=== PATIENT | male | born 1945 | race Caucasian/White ===

== ENCOUNTER 2020-11-29 17:00 | Inpatient (IN) | payer MEDICARE ==
[~2020-11-29] VITALS: Ht 177.8 cm; Wt 99.6 kg
[~2020-11-29 17:00] MED LIST: ACET325T9 PO; ALLO100T PO; APIX5TAB PO; ASCO500C PO; ASPI-630 PO; ATOR20TA PO; ATOR20TA58 PO; CEPH-264 PO; FAMO20TA5 PO; FERR-36 PO; FERR325T72 PO; FURO20TA3 PO; LACT1CAP19 PO; LIDO700A21 TD; METO-239 PO; NYST60PO TP; POTA-163 PO; SERT-267 PO; SEVE800T9 PO; TAMS0.4C97 PO; VITS42.55 TP
[2020-11-29 18:35] LABS: CALCIUM 9.5 mg/dL (8.5-10.1); CREATININE 8.1 mg/dL (0.7-1.3); GFR 6.6
[2020-11-29 18:40] LABS: ALBUMIN 4.3 g/dL (3.4-5.0); MAGNESIUM 1.5 mg/dL (1.8-2.4); TOTAL BILIRUBIN 0.5 mg/dL (0.2-1.0); TOTAL PROTEIN 8.4 g/dL (6.4-8.2)
--- NOTE | 2020-11-29 19:03 | PHYS DOC ---
Past Medical History Past Medical History: A-Fib, Diabetes-Type II, GI Bleed, Hypotension, Pneumonia, Renal Disease Additional Past Medical Histor: blood thinners Past Surgical History: Other Additional Past Surgical Histo: colectomy, fistula placement Smoking Status: Never Smoker Alcohol Use: None General Adult EDM: Chief Complaint: ABDOMINAL PAIN HPI: HPI: Patient is a 75 year old male with history of A. fib, diabetes type 2, end- stage kidney disease on dialysis Thursday last dialyzed yesterday who presents to the ED today complaining of 6 out of 10 pain around his ileostomy, symptoms began 2 to 3 days ago. Patient describes the pain as sharp and constant. Patient states he feels the ileostomy is not working, he states no stool has come out of it for two days currently bloody drainage. Patient is also complaining of nausea with no vomiting. Denies any fever. Review of Systems: Review of Systems: Constitutional: Denies fever or chills. [] Eyes: Denies change in visual acuity. [] HENT: Denies nasal congestion or sore throat. [] Respiratory: Denies cough or shortness of breath. [] Cardiovascular: Denies chest pain or edema. [] GI: Reports abd pain has an ileostomy denies vomiting, bloody stools or diarrhea. [] : Denies dysuria. [] Musculoskeletal: Denies back pain or joint pain. [] Integument: Denies rash. [] Neurologic: Denies headache, focal weakness or sensory changes. Psychiatric: Denies depression or anxiety. [] Heart Score: C/O Chest Pain: N/A Risk Factors: Risk Factors: DM, Current or recent (<one month) smoker, HTN, HLP, family history of CAD, obesity. Risk Scores: Score 0 - 3: 2.5% MACE over next 6 weeks - Discharge Home Score 4 - 6: 20.3% MACE over next 6 weeks - Admit for Clinical Observation Score 7 - 10: 72.7% MACE over next 6 weeks - Early Invasive Strategies Allergies: Allergies: Allergies Coded Allergies Type Severity Reaction Last Updated Verified No Known Drug Allergies 11/29/20 No Physical Exam: PE: Constitutional: Well developed, well nourished, no acute distress, non-toxic appearance. [] HEENT Very hard on hearing, is doing most of the speaking Eyes: PERRLA, EOMI, conjunctiva normal, no discharge. [] Neck: Normal range of motion, no tenderness, supple, no stridor. [] Cardiovascular:Heart rate regular rhythm, left upper extremity with a dialysis fistula, positive bruit and thrill Lungs & Thorax: Bilateral breath sounds clear to auscultation [] Abdomen: Right abdomen with an ileostomy, bloody drainage, soft, no tenderness, no masses, no pulsatile masses. [] Skin: Warm, dry, no erythema, no rash. [] Back: No tenderness, no CVA tenderness. [] Extremities: No tenderness, no cyanosis, no clubbing, ROM intact, no edema. [] Neurologic: Alert and oriented X 3, normal motor function, normal sensory funct ion, no focal deficits noted. [] Psychologic: Affect normal, judgement normal, mood normal. [] Current Patient Data: Labs: Laboratory Tests Test 11/29/20 18:03 11/29/20 18:17 Glucose (Fingerstick) 157 mg/dL (70-99) H Sodium Level 132 mmol/L (136-145) L Potassium Level 5.0 mmol/L (3.5-5.1) Chloride Level 90 mmol/L (98-107) L Carbon Dioxide Level 26 mmol/L (21-32) Anion Gap 16 (6-14) H Blood Urea Nitrogen 58 mg/dL (8-26) H Creatinine 8.1 mg/dL (0.7-1.3) H Estimated GFR (Cockcroft-Gault) 6.6 BUN/Creatinine Ratio 7 (6-20) Glucose Level 148 mg/dL (70-99) H Calcium Level 9.5 mg/dL (8.5-10.1) Magnesium Level 1.5 mg/dL (1.8-2.4) L Total Bilirubin 0.5 mg/dL (0.2-1.0) Aspartate Amino Transferase (AST) 21 U/L (15-37) Alanine Aminotransferase (ALT) 28 U/L (16-63) Alkaline Phosphatase 84 U/L (46-116) Total Protein 8.4 g/dL (6.4-8.2) H Albumin 4.3 g/dL (3.4-5.0) Albumin/Globulin Ratio 1.0 (1.0-1.7) Lipase 260 U/L (73-393) Laboratory Tests 11/29/20 18:17 Vital Signs: Vital Signs Date Time Temp Pulse Resp B/P (MAP) Pulse Ox O2 Delivery O2 Flow Rate FiO2 11/29/20 18:21 98.8 86 15 131/66 (87) 100 Room Air 98.8 EKG: EKG: [] Radiology/Procedures: Radiology/Procedures: []PROCEDURE: CT ABDOMEN PELVIS WO CONTRAST Exam: CT of abdomen and pelvis without contrast INDICATION: Stoma not working TECHNIQUE: Sequential axial images through the abdomen and pelvis obtained without IV contrast. Sagittal and coronal reformatted images were reconstructed from the axial data and reviewed. Exposure: One or more of the following in the visualized dose reduction techniques were utilized for this examination: 1. Automated exposure control 2. Adjustment of the MA and/or KV according to patient size 3. Use of iterative of reconstructive technique Comparisons: None FINDINGS: Heart size is normal. No pericardial effusion. Visualized lung bases are clear. No pleural effusion. Evaluation of solid organs limited to a to noncontrast technique. Liver, spleen, pancreas, and adrenals are unremarkable. Gallbladder surgically absent. No perinephric inflammation or hydronephrosis. There is cystic lesion at the mid left kidney which measures approximately 2.9 cm in diameter. This measures simple fluid attenuation however is incompletely characterized on noncontrast exam. No renal or ureteral calculi are identified. Bladder is decompressed not well evaluated. Prostate is not enlarged. Postoperative changes of near complete colectomy with a small rectal pouch. There is a right lower quadrant ileostomy. There is a parastomal hernia which contains a short segment of small bowel which is causing obstruction. The small bowel proximally is dilated. No free intra-abdominal air or fluid. No obs truction. Additionally there is a left periumbilical fat-containing hernia. Abdominal aorta has a normal course and caliber. No enlarged intra-abdominal lymph nodes are identified. No suspicious osseous lesions or acute fractures. IMPRESSION: 1. Right lower quadrant parastomal hernia containing short segment of small bowel which causes small bowel obstruction. 2. Postoperative changes of near total colectomy with a small rectal pouch. 3. Small fat-containing left periumbilical hernia. Electronically signed by: Tej Magana MD (11/29/2020 7:24 PM) [facility] DICTATED and SIGNED BY: TEJ MAGANA MD DATE: 11/29/20 [id number] 0 Course & Med Decision Making: Course & Med Decision Making Pertinent Labs and Imaging studies reviewed. (See chart for details) This is a 75-year-old male patient with an ileostomy presenting today complaining of abdominal pain, no stool for 2 days and bloody tinged drainage from the ileostomy. CBC CMP with nothing really acute, CMP consistent with end-stage kidney disease. CT of the abdomen and pelvic without contrast was noted for right lower quadrant parastomal hernia containing short segment of small bowel which causes small bowel obstruction. Spoke with Dr. Murphy who accepted patient for admission Spoke with Dr. Thomas who will follow up with patient, requested NG which was ordered Routine consult placed for pattern scratcher Anahi Disclaimer: Anahi Disclaimer: This electronic medical record was generated, in whole or in part, using a voice recognition dictation system. Departure Departure Impression: Primary Impression: ESRD (end stage renal disease) Additional Impression: Small bowel obstruction Disposition: ADMITTED INPATIENT Condition: STABLE Referrals: ZOEY MAHONEY (PCP) GARCIA PENN CAMPAIGN MANAGER Nov 29, 2020 19:03
[2020-11-29 19:11] LABS: BASO % 0 % (0-3); EOS % 1 % (0-3); HEMATOCRIT 40.5 % (39.0-53.0); LYMPH # 0.3 x10^3/uL (1.0-4.8); LYMPH % 4 % (24-48); MEAN CORPUSCULAR HEMOGLOBIN 40 pg (25-35); MEAN CORPUSCULAR HGB CONC 35 g/dL (31-37); MEAN CORPUSCULAR VOLUME 115 fL (79-100); MONO # 0.8 x10^3/uL (0.0-1.1); MONO % 11 % (0-9); NEUT # 5.8 x10^3/uL (1.8-7.7); NEUT % 84 % (31-73); PLATELET COUNT 183 x10^3/uL (140-400); RED BLOOD COUNT 3.52 x10^6/uL (4.30-5.70); RED CELL DISTRIBUTION WIDTH 13.4 % (11.5-14.5); WHITE BLOOD COUNT 6.9 x10^3/uL (4.0-11.0)
--- NOTE | 2020-11-29 19:26 | RAD ---
Exam: CT of abdomen and pelvis without contrast INDICATION: Stoma not working TECHNIQUE: Sequential axial images through the abdomen and pelvis obtained without IV contrast. Sagit meily and coronal reformatted images were reconstructed from the axial data and reviewed. Exposure: One or more of the following in the visualized dose reduction techniques were utilized for this examination: 1. Automated exposure control 2. Adjustment of the MA and/or KV according to patient size 3. Use of iterative of reconstructive technique Comparisons: None FINDINGS: Heart size is normal. No pericardial effusion. Visualized lung bases are clear. No pleural effusion. Evaluation of solid organs limited to a to noncontrast technique. Liver, spleen, pancreas, and adrenals are unremarkable. Gallbladder surgically absent. No perinephric inflammation or hydronephrosis. There is cystic lesion at the mid left kidney which me asures approximately 2.9 cm in diameter. This measures simple fluid attenuation however is incomplete ly characterized on noncontrast exam. No renal or ureteral calculi are identified. Bladder is decompressed not well evaluated. Prostate is not enlarged. Postoperative changes of near complete colectomy with a small rectal pouch. There is a right lower qu adrant ileostomy. There is a parastomal hernia which contains a short segment of small bowel which is causing obstruction. The small bowel proximally is dilated. No free intra-abdominal air or fluid. No obstruction. Additionally there is a left periumbilical fat-containing hernia. Abdominal aorta has a normal course and caliber. No enlarged intra-abdominal lymph nodes are identified. No suspicious osseous lesions or acute fractures. IMPRESSION: 1. Right lower quadrant parastomal hernia containing short segment of small bowel which causes small bowel obstruction. 2. Postoperative changes of near total colectomy with a small rectal pouch. 3. Small fat-containing left periumbilical hernia. Electronically signed by: Tej Chance MD (11/29/2020 7:24 PM) [facility]
[2020-11-29 19:47] LABS: % BANDS 13 % (0-9); % LYMPHS 5 % (24-48); % MONOS 10 % (0-10); % SEGS 72 % (35-66); PLT ESTIMATE ADEQUATE (ADEQUATE); POLYCHROMASIA SLIGHT
[2020-11-29] MEDS ORDERED: MORPHINE SULFATE 4 MG/ML INJ. IVP PRN (21:30)
[2020-11-29] MEDS ORDERED: METOCLOPRAMIDE HCL 10 MG/2 ML VIAL. IVP PRN (21:30)
[2020-11-29] MEDS ORDERED: ONDANSETRON PF 4 MG/2 ML VIAL. IVP PRN (21:30)
[2020-11-30] MEDS ORDERED: BENZOCAINE ONE 20% MUCOSAL SPRAY. (00:12)
[2020-11-30 02:00] VITALS: BP 113/67
[2020-11-30] MEDS ORDERED: MIDO2.5T PO (02:00)
[2020-11-30] MEDS ORDERED: PANT40TA77 PO (02:00)
[2020-11-30] MEDS ORDERED: CALC667T4 PO (02:02)
[2020-11-30 07:15] VITALS: BP 108/57
[2020-11-30 07:44] LABS: BASO % 1 % (0-3); EOS % 1 % (0-3); HEMATOCRIT 40.1 % (39.0-53.0); HEMOGLOBIN 13.8 g/dL (13.0-17.5); LYMPH # 0.2 x10^3/uL (1.0-4.8); LYMPH % 5 % (24-48); MEAN CORPUSCULAR HEMOGLOBIN 40 pg (25-35); MEAN CORPUSCULAR HGB CONC 34 g/dL (31-37); MEAN CORPUSCULAR VOLUME 116 fL (79-100); MONO # 0.8 x10^3/uL (0.0-1.1); MONO % 16 % (0-9); NEUT # 3.9 x10^3/uL (1.8-7.7); NEUT % 79 % (31-73); PLATELET COUNT 201 x10^3/uL (140-400); RED BLOOD COUNT 3.47 x10^6/uL (4.30-5.70); RED CELL DISTRIBUTION WIDTH 13.7 % (11.5-14.5)
[2020-11-30 07:51] LABS: CALCIUM 9.8 mg/dL (8.5-10.1); CREATININE 9.7 mg/dL (0.7-1.3); GFR 5.3
[2020-11-30 07:54] LABS: POTASSIUM 5.9 mmol/L (3.5-5.1)
--- NOTE | 2020-11-30 08:18 | PDOC1 ---
History and Physical Date of Admission Date of Admission DATE: 11/30/20 TIME: 08:18 Source Source: Chart review, Patient History of Present Illness History of Present Illness Patient is a 75 year old male with history of A. fib, diabetes type 2, end- stage kidney disease on dialysis Thursday last dialyzed yesterday who presents to the ED today complaining of 6 out of 10 pain around his ileostomy, symptoms began 2 to 3 days ago. Patient describes the pain as sharp and constant. Patient states he feels the ileostomy is not working, he states no stool has come out of it for two days currently bloody drainage. Patient is also complaining of nausea with no vomiting. Denies any fever. 73 y/o male who we have seen in the past. On this occasion, evaluated in ER for weakness, hypotension per EMS, and dark ostomy output. Symptoms began a couple days ago - describes ostomy output as a little more liquidy than normal, black that turns more red when bag dumped in toilet. Typically empties bag 4 times daily - this is unchanged. Possibly had similar symptoms in the past but resolved quickly. Noted w/ Hgb below baseline and +Hemoccult. Vitals stable here. Plans for transfusion during dialysis later today. Vitals stable. Denies reflux/heartburn, dysphagia, n/v, abd pain, constipation, or change in appetite. No previous EGD. Per past review of [facility] records, normal colonoscopy prior to colectomy w/ ileostomy [place] [address] Ayala for megacolon and colonic inertia. S/p cholecystectomy for stones. We saw earlier this year for ascites - liver workup unrevealing (imaging, paracentesis/fluid studies, Hepatitis serologies) - thought related to other issues, also improved when started dialysis. No pancreas or PUD history. H/o A Fib and CAD on Eliquis and ASA, h/o ESRD on HD, and h/o anemia (iron studies checked a couple times in the past - mixed WILI/ACD). Macrocytosis w/ normal B12 noted in the past, also thrombocytopenia. Med list does not include any acid-reducers and he's not sure what all he takes. Does know he takes iron. Past Medical History Cardiovascular: CAD, CHF, HTN, Hyperlipidemia, Pulmonary hypertension Pulmonary: COPD, Pneumonia CENTRAL NERVOUS SYSTEM: Other GI: GERD, GI bleed, Peptic Ulcer disease, Other Heme/Onc: Anemia NOS Hepatobiliary: No pertinent hx Psych: No pertinent hx Musculoskeletal: Osteoarthritis Rheumatologic: No pertinent hx Infectious disease: No pertinent hx, Other Renal/: Chronic renal failure Endocrine: Diabetes Past Surgical History Past Surgical History: Cholecystectomy, CABG, Colectomy, Other Family History Family History: Heart Disease Family History: Other (no GI cancer) Social History Smoke: No ALCOHOL: none Drugs: None Current Problem List Problem List Problems Medical Problems: (1) ESRD (end stage renal disease) Status: Acute (2) Small bowel obstruction Status: Acute Current Medications Current Medications Current Medications Ondansetron HCl (Zofran) 4 mg PRN Q8HRS PRN IVP NAUSEA/VOMITING; Start 11/29/20 at 21:30; Stop 11/30/20 at 21:29 Morphine Sulfate (Morphine Sulfate) 4 mg PRN Q2HR PRN IVP PAIN; Start 11/29/20 at 21:30; Stop 11/30/20 at 21:29 Metoclopramide HCl (Reglan Vial) 10 mg TID PRN PRN IVP NAUSEA; Start 11/29/20 at 21:30 Benzocaine (Hurricaine One) 1 spray STK-MED ONCE .ROUTE ; Start 11/30/20 at 00:12; Stop 11/30/20 at 00:12; Status DC Active Scripts Active Culturelle (Lactobacillus Rhamnosus Gg) 1 Each Cap.sprink 1 Cap PO BID 30 Days Reported Calcium Acetate 667 Mg Tablet 1 Tab PO TIDWMEALS 30 Days Midodrine Hcl 2.5 Mg Tablet 2.5 Mg PO TID Pantoprazole Sodium (Pantoprazole Sodium) 40 Mg Tablet.dr 40 Mg PO BIDAC Sertraline Hcl 50 Mg Tablet 50 Mg PO DAILY Flomax (Tamsulosin Hcl) 0.4 Mg Cap.er.24h 0.4 Mg PO DAILY Vitamin C (Ascorbic Acid) 500 Mg Capsule.er 1 Cap PO TID 30 Days Allopurinol 100 Mg Tablet 100 Mg PO DAILY Lipitor (Atorvastatin Calcium) 20 Mg Tablet 20 Mg PO HS Allergies Allergies: Coded Allergies: No Known Drug Allergies (Unverified , 11/29/20) ROS General: YES: Fatigue PSYCHOLOGICAL ROS: No: Anxiety, Behavioral Disorder, Concentration difficultie, Decreased libido, Depression, Disorientation, Hallucinations, Hostility, Irritablity, Memory difficulties, Mood Swings, Obsessive thoughts, Physical abuse, Sexual abuse, Sleep disturbances, Suicidal ideation, Other Eyes: No Blurry vision, No Decreased vision, No Double vision, No Dry eyes, No Excessive tearing, No Eye Pain, No Itchy Eyes, No Loss of vision, No Photophobia, No Scotomata, No Uses contacts, No Uses glasses, No Other HEENT: No: Heacaches, Visual Changes, Hearing change, Nasal congestion, Nasal discharge, Oral lesions, Sinus pain, Sore Throat, Epistaxis, Sneezing, Snoring, Tinnitus, Vertigo, Vocal changes, Other ENDOCRINE: No: Breast Changes, Galactorrhea, Hair Pattern Changes, Hot Flashes, Malaise/lethargy, Mood Swings, Palpitations, Polydipsia/polyuria, Skin Changes, Temperature Intolerance, Unexpected Weight Changes, Other Respiratory: No: Cough, Hemoptysis, Orthopnea, Pleuritic Pain, Shortness of breath, SOB with excertion, Sputum Changes, Stridor, Tachypnea, Wheezing, Other Cardiovascular: No Chest Pain, No Palpitations, No Orthopnea, No Paroxysmal Noc. Dyspnea, No Edema, No Lt Headedness, No Other Gastrointestinal: Yes Nausea, Yes Abdominal Pain Genitourinary: No Dysuria, No Frequency, No Incontinence, No Hematuria, No Retention, No Discharge, No Urgency, No Pain, No Flank Pain, No Other, No , No , No , No , No , No , No Musculoskeletal: Yes Joint Stiffness; No Gait Disturbance, No Joint Pain, No Joint Swelling, No Muscle Pain, No Muscular Weakness, No Pain In:, No Swelling In:, No Other Neurological: No Behavorial Changes, No Bowel/Bladder ControlChng, No Confus ion, No Dizziness, No Headaches, No Impaired Coord/balance, No Memory Loss, No Numbness/Tingling, No Seizures, No Speech Problems, No Tremors, No Visual Changes, No Weakness, No Other Skin: Yes Dry Skin; No Eczema, No Hair Changes, No Lumps, No Mole Changes, No Mottling, No Nail Changes, No Pruritus, No Rash, No Skin Lesion Changes, No Other, No Acne Physical Exam General: Alert, Cooperative, moderate distress HEENT: PERRLA, EOMI Lungs: Clear to auscultation Heart: S1S2 Extremities: No edema, Normal pulses Neuro: Normal speech, Cranial nerves 3-12 NL Psych/Mental Status: Mood NL Vitals Vitals Vital Signs Date Time Temp Pulse Resp B/P (MAP) Pulse Ox O2 Delivery O2 Flow Rate FiO2 11/30/20 07:15 98.1 117 20 108/57 (74) 96 Room Air 98.1 Labs Labs Laboratory Tests Test 11/29/20 18:03 11/29/20 18:17 11/30/20 01:35 11/30/20 07:05 Glucose (Fingerstick) 157 mg/dL (70-99) White Blood Count 6.9 x10^3/uL (4.0-11.0) 5.0 x10^3/uL (4.0-11.0) Red Blood Count 3.52 x10^6/uL (4.30-5.70) 3.47 x10^6/uL (4.30-5.70) Hemoglobin 14.0 g/dL (13.0-17.5) 13.8 g/dL (13.0-17.5) Hematocrit 40.5 % (39.0-53.0) 40.1 % (39.0-53.0) Mean Corpuscular Volume 115 fL (79-100) 116 fL (79-100) Mean Corpuscular Hemoglobin 40 pg (25-35) 40 pg (25-35) Mean Corpuscular Hemoglobin Concent 35 g/dL (31-37) 34 g/dL (31-37) Red Cell Distribution Width 13.4 % (11.5-14.5) 13.7 % (11.5-14.5) Platelet Count 183 x10^3/uL (140-400) 201 x10^3/uL (140-400) Neutrophils (%) (Auto) 84 % (31-73) 79 % (31-73) Lymphocytes (%) (Auto) 4 % (24-48) 5 % (24-48) Monocytes (%) (Auto) 11 % (0-9) 16 % (0-9) Eosinophils (%) (Auto) 1 % (0-3) 1 % (0-3) Basophils (%) (Auto) 0 % (0-3) 1 % (0-3) Neutrophils # (Auto) 5.8 x10^3/uL (1.8-7.7) 3.9 x10^3/uL (1.8-7.7) Lymphocytes # (Auto) 0.3 x10^3/uL (1.0-4.8) 0.2 x10^3/uL (1.0-4.8) Monocytes # (Auto) 0.8 x10^3/uL (0.0-1.1) 0.8 x10^3/uL (0.0-1.1) Eosinophils # (Auto) 0.0 x10^3/uL (0.0-0.7) 0.0 x10^3/uL (0.0-0.7) Basophils # (Auto) 0.0 x10^3/uL (0.0-0.2) 0.0 x10^3/uL (0.0-0.2) Segmented Neutrophils % 72 % (35-66) Band Neutrophils % 13 % (0-9) Lymphocytes % 5 % (24-48) Monocytes % 10 % (0-10) Platelet Estimate Adequate (ADEQUATE) Polychromasia Slight Macrocytosis Marked Sodium Level 132 mmol/L (136-145) 133 mmol/L (136-145) Potassium Level 5.0 mmol/L (3.5-5.1) 5.9 mmol/L (3.5-5.1) Chloride Level 90 mmol/L (98-107) 86 mmol/L (98-107) Carbon Dioxide Level 26 mmol/L (21-32) 25 mmol/L (21-32) Anion Gap 16 (6-14) 22 (6-14) Blood Urea Nitrogen 58 mg/dL (8-26) 74 mg/dL (8-26) Creatinine 8.1 mg/dL (0.7-1.3) 9.7 mg/dL (0.7-1.3) Estimated GFR (Cockcroft-Gault) 6.6 5.3 BUN/Creatinine Ratio 7 (6-20) Glucose Level 148 mg/dL (70-99) 154 mg/dL (70-99) Calcium Level 9.5 mg/dL (8.5-10.1) 9.8 mg/dL (8.5-10.1) Magnesium Level 1.5 mg/dL (1.8-2.4) Total Bilirubin 0.5 mg/dL (0.2-1.0) Aspartate Amino Transf (AST/SGOT) 21 U/L (15-37) Alanine Aminotransferase (ALT/SGPT) 28 U/L (16-63) Alkaline Phosphatase 84 U/L (46-116) Total Protein 8.4 g/dL (6.4-8.2) Albumin 4.3 g/dL (3.4-5.0) Albumin/Globulin Ratio 1.0 (1.0-1.7) Lipase 260 U/L (73-393) SARS-CoV-2 Antigen (Rapid) Negative (NEGATIVE) Laboratory Tests Test 11/29/20 18:03 11/29/20 18:17 11/30/20 01:35 11/30/20 07:05 Glucose (Fingerstick) 157 mg/dL (70-99) White Blood Count 6.9 x10^3/uL (4.0-11.0) 5.0 x10^3/uL (4.0-11.0) Red Blood Count 3.52 x10^6/uL (4.30-5.70) 3.47 x10^6/uL (4.30-5.70) Hemoglobin 14.0 g/dL (13.0-17.5) 13.8 g/dL (13.0-17.5) Hematocrit 40.5 % (39.0-53.0) 40.1 % (39.0-53.0) Mean Corpuscular Volume 115 fL (79-100) 116 fL (79-100) Mean Corpuscular Hemoglobin 40 pg (25-35) 40 pg (25-35) Mean Corpuscular Hemoglobin Concent 35 g/dL (31-37) 34 g/dL (31-37) Red Cell Distribution Width 13.4 % (11.5-14.5) 13.7 % (11.5-14.5) Platelet Count 183 x10^3/uL (140-400) 201 x10^3/uL (140-400) Neutrophils (%) (Auto) 84 % (31-73) 79 % (31-73) Lymphocytes (%) (Auto) 4 % (24-48) 5 % (24-48) Monocytes (%) (Auto) 11 % (0-9) 16 % (0-9) Eosinophils (%) (Auto) 1 % (0-3) 1 % (0-3) Basophils (%) (Auto) 0 % (0-3) 1 % (0-3) Neutrophils # (Auto) 5.8 x10^3/uL (1.8-7.7) 3.9 x10^3/uL (1.8-7.7) Lymphocytes # (Auto) 0.3 x10^3/uL (1.0-4.8) 0.2 x10^3/uL (1.0-4.8) Monocytes # (Auto) 0.8 x10^3/uL (0.0-1.1) 0.8 x10^3/uL (0.0-1.1) Eosinophils # (Auto) 0.0 x10^3/uL (0.0-0.7) 0.0 x10^3/uL (0.0-0.7) Basophils # (Auto) 0.0 x10^3/uL (0.0-0.2) 0.0 x10^3/uL (0.0-0.2) Segmented Neutrophils % 72 % (35-66) Band Neutrophils % 13 % (0-9) Lymphocytes % 5 % (24-48) Monocytes % 10 % (0-10) Platelet Estimate Adequate (ADEQUATE) Polychromasia Slight Macrocytosis Marked Sodium Level 132 mmol/L (136-145) 133 mmol/L (136-145) Potassium Level 5.0 mmol/L (3.5-5.1) 5.9 mmol/L (3.5-5.1) Chloride Level 90 mmol/L (98-107) 86 mmol/L (98-107) Carbon Dioxide Level 26 mmol/L (21-32) 25 mmol/L (21-32) Anion Gap 16 (6-14) 22 (6-14) Blood Urea Nitrogen 58 mg/dL (8-26) 74 mg/dL (8-26) Creatinine 8.1 mg/dL (0.7-1.3) 9.7 mg/dL (0.7-1.3) Estimated GFR (Cockcroft-Gault) 6.6 5.3 BUN/Creatinine Ratio 7 (6-20) Glucose Level 148 mg/dL (70-99) 154 mg/dL (70-99) Calcium Level 9.5 mg/dL (8.5-10.1) 9.8 mg/dL (8.5-10.1) Magnesium Level 1.5 mg/dL (1.8-2.4) Total Bilirubin 0.5 mg/dL (0.2-1.0) Aspartate Amino Transf (AST/SGOT) 21 U/L (15-37) Alanine Aminotransferase (ALT/SGPT) 28 U/L (16-63) Alkaline Phosphatase 84 U/L (46-116) Total Protein 8.4 g/dL (6.4-8.2) Albumin 4.3 g/dL (3.4-5.0) Albumin/Globulin Ratio 1.0 (1.0-1.7) Lipase 260 U/L (73-393) SARS-CoV-2 Antigen (Rapid) Negative (NEGATIVE) VTE Prophylaxis Ordered VTE Prophylaxis Devices: No VTE Pharmacological Prophylaxi: No Assessment/Plan Assessment/Plan acute abdominal pain small bowel obstruction, TO or, has ostomy from prior abd surg Justifications for Admission Other Justification DALI DIAZ MD Nov 30, 2020 08:18
[2020-11-30] MEDS ORDERED: CYANOCOBALAMIN (VITAMIN B-12) 1,000 MCG/ML VIAL. IM ONE (08:30)
[2020-11-30] MEDS ORDERED: IV NORMAL SALINE 1000ML BAG 1,000 ML IV ONE (08:30)
--- NOTE | 2020-11-30 08:53 | PDOC2 ---
JON BYRNE [employer] 11/30/20 0853: CONSULT Date of Consult Date of Consult DATE: 11/30/20 TIME: 08:50 Reason for Consult Reason for Consult: SBO Referring Physician Referring Physician: ER Identification/Chief Complaint Chief Complaint abdominal pain Source Source: Chart review, Patient History of Present Illness Reason for Visit: 2-3 days of abdominal pain, nausea. hx of colectomy, ileostomy for megacolon by Dr Ayala. No stool in ostomy for 2 days, just some bloody drainage. Past Medical History Cardiovascular: CAD, CHF, HTN, Hyperlipidemia, Pulmonary hypertension Pulmonary: COPD, Pneumonia CENTRAL NERVOUS SYSTEM: Other GI: GERD, GI bleed, Peptic Ulcer disease, Other Heme/Onc: Anemia NOS Hepatobiliary: No pertinent hx Psych: No pertinent hx Musculoskeletal: Osteoarthritis Rheumatologic: No pertinent hx Infectious disease: No pertinent hx, Other Renal/: Chronic renal failure Endocrine: Diabetes Past Surgical History Past Surgical History: Cholecystectomy, CABG, Colectomy, Other Family History Family History: Heart Disease Social History Social History: Other (no GI cancer) ALCOHOL: none Drugs: None Lives: with Family Current Problem List Problem List Problems Medical Problems: (1) ESRD (end stage renal disease) Status: Acute (2) Small bowel obstruction Status: Acute Current Medications Current Medications Current Medications Ondansetron HCl (Zofran) 4 mg PRN Q8HRS PRN IVP NAUSEA/VOMITING; Start 11/29/20 at 21:30; Stop 11/30/20 at 21:29 Morphine Sulfate (Morphine Sulfate) 4 mg PRN Q2HR PRN IVP PAIN; Start 11/29/20 at 21:30; Stop 11/30/20 at 21:29 Metoclopramide HCl (Reglan Vial) 10 mg TID PRN PRN IVP NAUSEA; Start 11/29/20 at 21:30 Benzocaine (Hurricaine One) 1 spray STK-MED ONCE .ROUTE ; Start 11/30/20 at 00:12; Stop 11/30/20 at 00:12; Status DC Cyanocobalamin (Vitamin B-12 Inj) 1,000 mcg 1X ONCE IM ; Start 11/30/20 at 08:30; Stop 11/30/20 at 08:31; Status DC Allopurinol (Zyloprim) 100 mg DAILY PO ; Start 11/30/20 at 09:00 Midodrine (Proamatine) 2.5 mg [id number] PO ; Start 11/30/20 at 09:00 Pantoprazole Sodium (Protonix) 40 mg BIDAC PO ; Start 11/30/20 at 16:30 Sertraline HCl (Zoloft) 50 mg DAILY PO ; Start 11/30/20 at 09:00 Tamsulosin HCl (Flomax) 0.4 mg DAILY PO ; Start 11/30/20 at 09:00 Sodium Chloride 1,000 ml @ 100 mls/hr 1X ONCE IV ; Start 11/30/20 at 08:30; Stop 11/30/20 at 18:29 Active Scripts Active Culturelle (Lactobacillus Rhamnosus Gg) 1 Each Cap.sprink 1 Cap PO BID 30 Days Reported Calcium Acetate 667 Mg Tablet 1 Tab PO TIDWMEALS 30 Days Midodrine Hcl 2.5 Mg Tablet 2.5 Mg PO TID Pantoprazole Sodium (Pantoprazole Sodium) 40 Mg Tablet.dr 40 Mg PO BIDAC Sertraline Hcl 50 Mg Tablet 50 Mg PO DAILY Flomax (Tamsulosin Hcl) 0.4 Mg Cap.er.24h 0.4 Mg PO DAILY Vitamin C (Ascorbic Acid) 500 Mg Capsule.er 1 Cap PO TID 30 Days Allopurinol 100 Mg Tablet 100 Mg PO DAILY Lipitor (Atorvastatin Calcium) 20 Mg Tablet 20 Mg PO HS Allergies Allergies: Coded Allergies: No Known Drug Allergies (Unverified , 11/29/20) ROS General: No: Chills, Other (fevers ) PSYCHOLOGICAL ROS: No: Anxiety, Depression Eyes: No Blurry vision, No Double vision Hematological and Lymphatic: YES: Bleeding Problems; No: Blood Clots Respiratory: No: Cough, Shortness of breath Cardiovascular: No Chest Pain, No Palpitations Gastrointestinal: Yes Other (see hpi) Genitourinary: No Dysuria, No Hematuria Musculoskeletal: No Joint Pain, No Muscle Pain Neurological: No Impaired Coord/balance, No Numbness/Tingling Physical Exam General: Alert, Oriented X3, Cooperative HEENT: Other (ng in place) Lungs: Clear to auscultation, Normal air movement Heart: Normal S1, Normal S2, Other (tachy) Abdomen: Soft, Other Extremities: No clubbing, No cyanosis Skin: No rashes, No breakdown Neuro: Normal gait, Normal speech Psych/Mental Status: Mental status NL, Mood NL MUSCULOSKELETAL: No deformity, No swelling Vitals VITALS Vital Signs Date Time Temp Pulse Resp B/P (MAP) Pulse Ox O2 Delivery O2 Flow Rate FiO2 11/30/20 07:15 98.1 117 20 108/57 (74) 96 Room Air 98.1 Labs Labs Laboratory Tests Test 11/29/20 18:03 11/29/20 18:17 11/30/20 01:35 11/30/20 07:05 Glucose (Fingerstick) 157 mg/dL (70-99) White Blood Count 6.9 x10^3/uL (4.0-11.0) 5.0 x10^3/uL (4.0-11.0) Red Blood Count 3.52 x10^6/uL (4.30-5.70) 3.47 x10^6/uL (4.30-5.70) Hemoglobin 14.0 g/dL (13.0-17.5) 13.8 g/dL (13.0-17.5) Hematocrit 40.5 % (39.0-53.0) 40.1 % (39.0-53.0) Mean Corpuscular Volume 115 fL (79-100) 116 fL (79-100) Mean Corpuscular Hemoglobin 40 pg (25-35) 40 pg (25-35) Mean Corpuscular Hemoglobin Concent 35 g/dL (31-37) 34 g/dL (31-37) Red Cell Distribution Width 13.4 % (11.5-14.5) 13.7 % (11.5-14.5) Platelet Count 183 x10^3/uL (140-400) 201 x10^3/uL (140-400) Neutrophils (%) (Auto) 84 % (31-73) 79 % (31-73) Lymphocytes (%) (Auto) 4 % (24-48) 5 % (24-48) Monocytes (%) (Auto) 11 % (0-9) 16 % (0-9) Eosinophils (%) (Auto) 1 % (0-3) 1 % (0-3) Basophils (%) (Auto) 0 % (0-3) 1 % (0-3) Neutrophils # (Auto) 5.8 x10^3/uL (1.8-7.7) 3.9 x10^3/uL (1.8-7.7) Lymphocytes # (Auto) 0.3 x10^3/uL (1.0-4.8) 0.2 x10^3/uL (1.0-4.8) Monocytes # (Auto) 0.8 x10^3/uL (0.0-1.1) 0.8 x10^3/uL (0.0-1.1) Eosinophils # (Auto) 0.0 x10^3/uL (0.0-0.7) 0.0 x10^3/uL (0.0-0.7) Basophils # (Auto) 0.0 x10^3/uL (0.0-0.2) 0.0 x10^3/uL (0.0-0.2) Segmented Neutrophils % 72 % (35-66) Band Neutrophils % 13 % (0-9) Lymphocytes % 5 % (24-48) Monocytes % 10 % (0-10) Platelet Estimate Adequate (ADEQUATE) Polychromasia Slight Macrocytosis Marked Sodium Level 132 mmol/L (136-145) 133 mmol/L (136-145) Potassium Level 5.0 mmol/L (3.5-5.1) 5.9 mmol/L (3.5-5.1) Chloride Level 90 mmol/L (98-107) 86 mmol/L (98-107) Carbon Dioxide Level 26 mmol/L (21-32) 25 mmol/L (21-32) Anion Gap 16 (6-14) 22 (6-14) Blood Urea Nitrogen 58 mg/dL (8-26) 74 mg/dL (8-26) Creatinine 8.1 mg/dL (0.7-1.3) 9.7 mg/dL (0.7-1.3) Estimated GFR (Cockcroft-Gault) 6.6 5.3 BUN/Creatinine Ratio 7 (6-20) Glucose Level 148 mg/dL (70-99) 154 mg/dL (70-99) Calcium Level 9.5 mg/dL (8.5-10.1) 9.8 mg/dL (8.5-10.1) Magnesium Level 1.5 mg/dL (1.8-2.4) Total Bilirubin 0.5 mg/dL (0.2-1.0) Aspartate Amino Transf (AST/SGOT) 21 U/L (15-37) Alanine Aminotransferase (ALT/SGPT) 28 U/L (16-63) Alkaline Phosphatase 84 U/L (46-116) Total Protein 8.4 g/dL (6.4-8.2) Albumin 4.3 g/dL (3.4-5.0) Albumin/Globulin Ratio 1.0 (1.0-1.7) Lipase 260 U/L (73-393) SARS-CoV-2 Antigen (Rapid) Negative (NEGATIVE) Laboratory Tests Test 11/29/20 18:03 11/29/20 18:17 11/30/20 01:35 11/30/20 07:05 Glucose (Fingerstick) 157 mg/dL (70-99) White Blood Count 6.9 x10^3/uL (4.0-11.0) 5.0 x10^3/uL (4.0-11.0) Red Blood Count 3.52 x10^6/uL (4.30-5.70) 3.47 x10^6/uL (4.30-5.70) Hemoglobin 14.0 g/dL (13.0-17.5) 13.8 g/dL (13.0-17.5) Hematocrit 40.5 % (39.0-53.0) 40.1 % (39.0-53.0) Mean Corpuscular Volume 115 fL (79-100) 116 fL (79-100) Mean Corpuscular Hemoglobin 40 pg (25-35) 40 pg (25-35) Mean Corpuscular Hemoglobin Concent 35 g/dL (31-37) 34 g/dL (31-37) Red Cell Distribution Width 13.4 % (11.5-14.5) 13.7 % (11.5-14.5) Platelet Count 183 x10^3/uL (140-400) 201 x10^3/uL (140-400) Neutrophils (%) (Auto) 84 % (31-73) 79 % (31-73) Lymphocytes (%) (Auto) 4 % (24-48) 5 % (24-48) Monocytes (%) (Auto) 11 % (0-9) 16 % (0-9) Eosinophils (%) (Auto) 1 % (0-3) 1 % (0-3) Basophils (%) (Auto) 0 % (0-3) 1 % (0-3) Neutrophils # (Auto) 5.8 x10^3/uL (1.8-7.7) 3.9 x10^3/uL (1.8-7.7) Lymphocytes # (Auto) 0.3 x10^3/uL (1.0-4.8) 0.2 x10^3/uL (1.0-4.8) Monocytes # (Auto) 0.8 x10^3/uL (0.0-1.1) 0.8 x10^3/uL (0.0-1.1) Eosinophils # (Auto) 0.0 x10^3/uL (0.0-0.7) 0.0 x10^3/uL (0.0-0.7) Basophils # (Auto) 0.0 x10^3/uL (0.0-0.2) 0.0 x10^3/uL (0.0-0.2) Segmented Neutrophils % 72 % (35-66) Band Neutrophils % 13 % (0-9) Lymphocytes % 5 % (24-48) Monocytes % 10 % (0-10) Platelet Estimate Adequate (ADEQUATE) Polychromasia Slight Macrocytosis Marked Sodium Level 132 mmol/L (136-145) 133 mmol/L (136-145) Potassium Level 5.0 mmol/L (3.5-5.1) 5.9 mmol/L (3.5-5.1) Chloride Level 90 mmol/L (98-107) 86 mmol/L (98-107) Carbon Dioxide Level 26 mmol/L (21-32) 25 mmol/L (21-32) Anion Gap 16 (6-14) 22 (6-14) Blood Urea Nitrogen 58 mg/dL (8-26) 74 mg/dL (8-26) Creatinine 8.1 mg/dL (0.7-1.3) 9.7 mg/dL (0.7-1.3) Estimated GFR (Cockcroft-Gault) 6.6 5.3 BUN/Creatinine Ratio 7 (6-20) Glucose Level 148 mg/dL (70-99) 154 mg/dL (70-99) Calcium Level 9.5 mg/dL (8.5-10.1) 9.8 mg/dL (8.5-10.1) Magnesium Level 1.5 mg/dL (1.8-2.4) Total Bilirubin 0.5 mg/dL (0.2-1.0) Aspartate Amino Transf (AST/SGOT) 21 U/L (15-37) Alanine Aminotransferase (ALT/SGPT) 28 U/L (16-63) Alkaline Phosphatase 84 U/L (46-116) Total Protein 8.4 g/dL (6.4-8.2) Albumin 4.3 g/dL (3.4-5.0) Albumin/Globulin Ratio 1.0 (1.0-1.7) Lipase 260 U/L (73-393) SARS-CoV-2 Antigen (Rapid) Negative (NEGATIVE) Assessment/Plan Assessment/Plan 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 No stool within the stoma some bloody serous fluid. CT scan reviewed showing strangulated bowel within the parastomal hernia. Plan for exploratory laparotomy with reduction of hernia possible small bowel resection this was all discussed with the patient. Agree with Eliezer assessment and plan JON BYRNE APRN Nov 30, 2020 08:53 ROSELIA HOLDEN MD Nov 30, 2020 08:58
[2020-11-30] MEDS: SERTRALINE 50 MG TABLET. PO SCH (09:00)
[2020-11-30] MEDS: TAMSULOSIN 0.4 MG CAP.ER.24H. PO SCH (09:00)
[2020-11-30] MEDS: ALLOPURINOL 100 MG TABLET. PO SCH (09:00)
[2020-11-30] MEDS: MIDODRINE 2.5 MG TABLET PO SCH ×3 (09:00→18:00)
[2020-11-30] MEDS ORDERED: SUCCINYLCHOLINE 200 MG/10 ML VIAL. ONE (10:13)
[2020-11-30] MEDS ORDERED: ONDANSETRON PF 4 MG/2 ML VIAL. ONE (10:13)
[2020-11-30] MEDS ORDERED: PROPOFOL 10 MG/ML (20ML) VIAL. IV ONE (10:13)
[2020-11-30] MEDS ORDERED: LIDOCAINE 2% PF 5 ML VIAL. ONE (10:13)
[2020-11-30] MEDS ORDERED: DEXAMETHASONE SOD PHOS 4 MG/ML VIAL ONE (10:13)
[2020-11-30] MEDS ORDERED: ROCURONIUM 50 MG/5 ML VIAL. ONE (10:14)
[2020-11-30] MEDS ORDERED: fentaNYL PF VIAL 100 MCG/2 ML VIAL ONE ×2 (10:14→13:43)
[2020-11-30] MEDS ORDERED: HYDROmorphone 2 MG/ML VIAL IVP PRN (10:15)
[2020-11-30] MEDS ORDERED: PROCHLORPERAZINE 10 MG/2 ML VIAL. IVP PRN (10:15)
[2020-11-30] MEDS ORDERED: IV RINGERS,LACTATED 1000ML 1,000 ML IV SCH (10:15)
[2020-11-30] MEDS ORDERED: fentaNYL PF VIAL 100 MCG/2 ML VIAL IVP PRN ×2 (10:15)
[2020-11-30] MEDS ORDERED: MORPHINE SULFATE 2 MG/ML INJ. IVP PRN (10:15)
--- NOTE | 2020-11-30 10:35 | NUR ---
SW following. Discussed with RN, pt from home with , room air, NPO, rapid COVID-19 negative. Nephrology and Surgery following. Pt having surgery this morning, then dialysis this afternoon. SW will continue to follow.
--- NOTE | 2020-11-30 10:39 | PDOC2 ---
CONSULT Date of Consult Date of Consult DATE: 11/30/20 TIME: 10:35 Reason for Consult Reason for Consult: ESRD Referring Physician Referring Physician: JOE Identification/Chief Complaint Chief Complaint ABD PAIN WITH N/V Source Source: Chart review, Patient History of Present Illness Reason for Visit: THIS IS A 75 YR OLD WITH ESRD ON HD MWF. ESRD DUE TO DM II AND HTN. ADMITTED WITH N/V ABD PAIN. DX WITH SBO. HAS HX OF COLECTOMY AND ILEOSTOMY FOR MEGACOLON. LABS C/W ESRD. SURGICAL EVAL ONGOING. HAS HX OF TDC AND NOW AV ACCESS Past Medical History Cardiovascular: CAD, CHF, HTN, Hyperlipidemia, Pulmonary hypertension Pulmonary: COPD, Pneumonia CENTRAL NERVOUS SYSTEM: Other GI: GERD, GI bleed, Peptic Ulcer disease, Other Heme/Onc: Anemia NOS Hepatobiliary: No pertinent hx Psych: No pertinent hx Musculoskeletal: Osteoarthritis Rheumatologic: No pertinent hx Infectious disease: No pertinent hx, Other Renal/: Chronic renal failure Endocrine: Diabetes, Hyperparathyroidism Past Surgical History Past Surgical History: Cholecystectomy, CABG, Colectomy, Other Family History Family History: Heart Disease Social History Social History: Other (no GI cancer) ALCOHOL: none Drugs: None Lives: with Family Current Problem List Problem List Problems Medical Problems: (1) ESRD (end stage renal disease) Status: Acute (2) Small bowel obstruction Status: Acute Current Medications Current Medications Current Medications Ondansetron HCl (Zofran) 4 mg PRN Q8HRS PRN IVP NAUSEA/VOMITING; Start 11/29/20 at 21:30; Stop 11/30/20 at 21:29 Morphine Sulfate (Morphine Sulfate) 4 mg PRN Q2HR PRN IVP PAIN Last administered on 11/30/20at 08:56; Start 11/29/20 at 21:30; Stop 11/30/20 at 21:29 Metoclopramide HCl (Reglan Vial) 10 mg TID PRN PRN IVP NAUSEA; Start 11/29/20 at 21:30 Benzocaine (Hurricaine One) 1 spray STK-MED ONCE .ROUTE ; Start 11/30/20 at 00:12; Stop 11/30/20 at 00:12; Status DC Cyanocobalamin (Vitamin B-12 Inj) 1,000 mcg 1X ONCE IM Last administered on 11/30/20at 08:56; Start 11/30/20 at 08:30; Stop 11/30/20 at 08:31; Status DC Allopurinol (Zyloprim) 100 mg DAILY PO ; Start 11/30/20 at 09:00 Midodrine (Proamatine) 2.5 mg [id number] PO ; Start 11/30/20 at 09:00 Pantoprazole Sodium (Protonix) 40 mg BIDAC PO ; Start 11/30/20 at 16:30 Sertraline HCl (Zoloft) 50 mg DAILY PO ; Start 11/30/20 at 09:00 Tamsulosin HCl (Flomax) 0.4 mg DAILY PO ; Start 11/30/20 at 09:00 Sodium Chloride 1,000 ml @ 100 mls/hr 1X ONCE IV Last administered on 11/30/20at 08:56; Start 11/30/20 at 08:30; Stop 11/30/20 at 18:29 Cefazolin Sodium/ Dextrose 50 ml @ 100 mls/hr 1X ONCE IV ; Start 11/30/20 at 09:00; Stop 11/30/20 at 09:29; Status DC Propofol (Diprivan) 200 mg STK-MED ONCE IV ; Start 11/30/20 at 10:13; Stop 11/30/20 at 10:13; Status DC Lidocaine HCl (Lidocaine Pf 2% Vial) 5 ml STK-MED ONCE .ROUTE ; Start 11/30/20 at 10:13; Stop 11/30/20 at 10:13; Status DC Dexamethasone Sodium Phosphate (Decadron) 4 mg STK-MED ONCE .ROUTE ; Start 11/30/20 at 10:13; Stop 11/30/20 at 10:13; Status DC Ondansetron HCl (Zofran) 4 mg STK-MED ONCE .ROUTE ; Start 11/30/20 at 10:13; Stop 11/30/20 at 10:13; Status DC Succinylcholine Chloride (Anectine) 200 mg STK-MED ONCE .ROUTE ; Start 11/30/20 at 10:13; Stop 11/30/20 at 10:14; Status DC Rocuronium [place] (Zemuron) 50 mg STK-MED ONCE .ROUTE ; Start 11/30/20 at 10:14; Stop 11/30/20 at 10:14; Status DC Fentanyl Citrate (Fentanyl 2ml Vial) 100 mcg STK-MED ONCE .ROUTE ; Start 11/30/20 at 10:14; Stop 11/30/20 at 10:15; Status DC Fentanyl Citrate (Fentanyl 2ml Vial) 25 mcg PRN Q5MIN PRN IVP MILD PAIN 1-3; Start 11/30/20 at 10:15; Stop 12/01/20 at 10:14 Fentanyl Citrate (Fentanyl 2ml Vial) 50 mcg PRN Q5MIN PRN IVP MODERATE PAIN 4- 6; Start 11/30/20 at 10:15; Stop 12/01/20 at 10:14 Morphine Sulfate (Morphine Sulfate) 1 mg PRN Q10MIN PRN IVP SEVERE PAIN 7-10; Start 11/30/20 at 10:15; Stop 12/01/20 at 10:14 Ringer's Solution 1,000 ml @ 30 mls/hr Q24H IV ; Start 11/30/20 at 10:15; Stop 11/30/20 at 22:14 Hydromorphone HCl (Dilaudid) 0.5 mg PRN Q10MIN PRN IVP SEVERE PAIN 7-10, 2nd CHOICE; Start 11/30/20 at 10:15; Stop 12/01/20 at 10:14 Prochlorperazine Edisylate (Compazine) 5 mg PACU PRN PRN IVP NAUSEA, MRX1; Start 11/30/20 at 10:15; Stop 12/01/20 at 10:14 Active Scripts Active Culturelle (Lactobacillus Rhamnosus Gg) 1 Each Cap.sprink 1 Cap PO BID 30 Days Reported Calcium Acetate 667 Mg Tablet 1 Tab PO TIDWMEALS 30 Days Midodrine Hcl 2.5 Mg Tablet 2.5 Mg PO TID Pantoprazole Sodium (Pantoprazole Sodium) 40 Mg Tablet.dr 40 Mg PO BIDAC Sertraline Hcl 50 Mg Tablet 50 Mg PO DAILY Flomax (Tamsulosin Hcl) 0.4 Mg Cap.er.24h 0.4 Mg PO DAILY Vitamin C (Ascorbic Acid) 500 Mg Capsule.er 1 Cap PO TID 30 Days Allopurinol 100 Mg Tablet 100 Mg PO DAILY Lipitor (Atorvastatin Calcium) 20 Mg Tablet 20 Mg PO HS Allergies Allergies: Coded Allergies: No Known Drug Allergies (Unverified , 11/29/20) ROS General: YES: Fatigue, Malaise, Appetite PSYCHOLOGICAL ROS: YES: Anxiety, Depression Eyes: Yes Decreased vision HEENT: YES: Heacaches Respiratory: YES: Cough Gastrointestinal: Yes Nausea, Yes Vomiting, Yes Abdominal Pain Genitourinary: YES Other (ANURIA) Musculoskeletal: Yes Muscular Weakness Neurological: Yes Weakness Skin: Yes Dry Skin Physical Exam General: Alert, Oriented X3, Cooperative, No acute distress HEENT: Atraumatic, PERRLA Lungs: Clear to auscultation Heart: Regular rate, Normal S1 Abdomen: Other (DISTENDED, HYPOACTIVE) Extremities: No clubbing Skin: No breakdown Neuro: Normal speech Psych/Mental Status: Mental status NL, Mood NL MUSCULOSKELETAL: No joint tenderness, No deformity, No swelling Vitals VITALS Vital Signs Date Time Temp Pulse Resp B/P (MAP) Pulse Ox O2 Delivery O2 Flow Rate FiO2 11/30/20 09:43 98.1 130 15 122/65 98 Room Air 4 98.1 Labs Labs Laboratory Tests Test 11/29/20 18:03 11/29/20 18:17 11/30/20 01:35 11/30/20 07:05 Glucose (Fingerstick) 157 mg/dL (70-99) White Blood Count 6.9 x10^3/uL (4.0-11.0) 5.0 x10^3/uL (4.0-11.0) Red Blood Count 3.52 x10^6/uL (4.30-5.70) 3.47 x10^6/uL (4.30-5.70) Hemoglobin 14.0 g/dL (13.0-17.5) 13.8 g/dL (13.0-17.5) Hematocrit 40.5 % (39.0-53.0) 40.1 % (39.0-53.0) Mean Corpuscular Volume 115 fL (79-100) 116 fL (79-100) Mean Corpuscular Hemoglobin 40 pg (25-35) 40 pg (25-35) Mean Corpuscular Hemoglobin Concent 35 g/dL (31-37) 34 g/dL (31-37) Red Cell Distribution Width 13.4 % (11.5-14.5) 13.7 % (11.5-14.5) Platelet Count 183 x10^3/uL (140-400) 201 x10^3/uL (140-400) Neutrophils (%) (Auto) 84 % (31-73) 79 % (31-73) Lymphocytes (%) (Auto) 4 % (24-48) 5 % (24-48) Monocytes (%) (Auto) 11 % (0-9) 16 % (0-9) Eosinophils (%) (Auto) 1 % (0-3) 1 % (0-3) Basophils (%) (Auto) 0 % (0-3) 1 % (0-3) Neutrophils # (Auto) 5.8 x10^3/uL (1.8-7.7) 3.9 x10^3/uL (1.8-7.7) Lymphocytes # (Auto) 0.3 x10^3/uL (1.0-4.8) 0.2 x10^3/uL (1.0-4.8) Monocytes # (Auto) 0.8 x10^3/uL (0.0-1.1) 0.8 x10^3/uL (0.0-1.1) Eosinophils # (Auto) 0.0 x10^3/uL (0.0-0.7) 0.0 x10^3/uL (0.0-0.7) Basophils # (Auto) 0.0 x10^3/uL (0.0-0.2) 0.0 x10^3/uL (0.0-0.2) Segmented Neutrophils % 72 % (35-66) Band Neutrophils % 13 % (0-9) Lymphocytes % 5 % (24-48) Monocytes % 10 % (0-10) Platelet Estimate Adequate (ADEQUATE) Polychromasia Slight Macrocytosis Marked Sodium Level 132 mmol/L (136-145) 133 mmol/L (136-145) Potassium Level 5.0 mmol/L (3.5-5.1) 5.9 mmol/L (3.5-5.1) Chloride Level 90 mmol/L (98-107) 86 mmol/L (98-107) Carbon Dioxide Level 26 mmol/L (21-32) 25 mmol/L (21-32) Anion Gap 16 (6-14) 22 (6-14) Blood Urea Nitrogen 58 mg/dL (8-26) 74 mg/dL (8-26) Creatinine 8.1 mg/dL (0.7-1.3) 9.7 mg/dL (0.7-1.3) Estimated GFR (Cockcroft-Gault) 6.6 5.3 BUN/Creatinine Ratio 7 (6-20) Glucose Level 148 mg/dL (70-99) 154 mg/dL (70-99) Calcium Level 9.5 mg/dL (8.5-10.1) 9.8 mg/dL (8.5-10.1) Magnesium Level 1.5 mg/dL (1.8-2.4) Total Bilirubin 0.5 mg/dL (0.2-1.0) Aspartate Amino Transf (AST/SGOT) 21 U/L (15-37) Alanine Aminotransferase (ALT/SGPT) 28 U/L (16-63) Alkaline Phosphatase 84 U/L (46-116) Total Protein 8.4 g/dL (6.4-8.2) Albumin 4.3 g/dL (3.4-5.0) Albumin/Globulin Ratio 1.0 (1.0-1.7) Lipase 260 U/L (73-393) SARS-CoV-2 Antigen (Rapid) Negative (NEGATIVE) Test 11/30/20 09:41 Glucose (Fingerstick) 174 mg/dL (70-99) Laboratory Tests Test 11/29/20 18:03 11/29/20 18:17 11/30/20 01:35 11/30/20 07:05 Glucose (Fingerstick) 157 mg/dL (70-99) White Blood Count 6.9 x10^3/uL (4.0-11.0) 5.0 x10^3/uL (4.0-11.0) Red Blood Count 3.52 x10^6/uL (4.30-5.70) 3.47 x10^6/uL (4.30-5.70) Hemoglobin 14.0 g/dL (13.0-17.5) 13.8 g/dL (13.0-17.5) Hematocrit 40.5 % (39.0-53.0) 40.1 % (39.0-53.0) Mean Corpuscular Volume 115 fL (79-100) 116 fL (79-100) Mean Corpuscular Hemoglobin 40 pg (25-35) 40 pg (25-35) Mean Corpuscular Hemoglobin Concent 35 g/dL (31-37) 34 g/dL (31-37) Red Cell Distribution Width 13.4 % (11.5-14.5) 13.7 % (11.5-14.5) Platelet Count 183 x10^3/uL (140-400) 201 x10^3/uL (140-400) Neutrophils (%) (Auto) 84 % (31-73) 79 % (31-73) Lymphocytes (%) (Auto) 4 % (24-48) 5 % (24-48) Monocytes (%) (Auto) 11 % (0-9) 16 % (0-9) Eosinophils (%) (Auto) 1 % (0-3) 1 % (0-3) Basophils (%) (Auto) 0 % (0-3) 1 % (0-3) Neutrophils # (Auto) 5.8 x10^3/uL (1.8-7.7) 3.9 x10^3/uL (1.8-7.7) Lymphocytes # (Auto) 0.3 x10^3/uL (1.0-4.8) 0.2 x10^3/uL (1.0-4.8) Monocytes # (Auto) 0.8 x10^3/uL (0.0-1.1) 0.8 x10^3/uL (0.0-1.1) Eosinophils # (Auto) 0.0 x10^3/uL (0.0-0.7) 0.0 x10^3/uL (0.0-0.7) Basophils # (Auto) 0.0 x10^3/uL (0.0-0.2) 0.0 x10^3/uL (0.0-0.2) Segmented Neutrophils % 72 % (35-66) Band Neutrophils % 13 % (0-9) Lymphocytes % 5 % (24-48) Monocytes % 10 % (0-10) Platelet Estimate Adequate (ADEQUATE) Polychromasia Slight Macrocytosis Marked Sodium Level 132 mmol/L (136-145) 133 mmol/L (136-145) Potassium Level 5.0 mmol/L (3.5-5.1) 5.9 mmol/L (3.5-5.1) Chloride Level 90 mmol/L (98-107) 86 mmol/L (98-107) Carbon Dioxide Level 26 mmol/L (21-32) 25 mmol/L (21-32) Anion Gap 16 (6-14) 22 (6-14) Blood Urea Nitrogen 58 mg/dL (8-26) 74 mg/dL (8-26) Creatinine 8.1 mg/dL (0.7-1.3) 9.7 mg/dL (0.7-1.3) Estimated GFR (Cockcroft-Gault) 6.6 5.3 BUN/Creatinine Ratio 7 (6-20) Glucose Level 148 mg/dL (70-99) 154 mg/dL (70-99) Calcium Level 9.5 mg/dL (8.5-10.1) 9.8 mg/dL (8.5-10.1) Magnesium Level 1.5 mg/dL (1.8-2.4) Total Bilirubin 0.5 mg/dL (0.2-1.0) Aspartate Amino Transf (AST/SGOT) 21 U/L (15-37) Alanine Aminotransferase (ALT/SGPT) 28 U/L (16-63) Alkaline Phosphatase 84 U/L (46-116) Total Protein 8.4 g/dL (6.4-8.2) Albumin 4.3 g/dL (3.4-5.0) Albumin/Globulin Ratio 1.0 (1.0-1.7) Lipase 260 U/L (73-393) SARS-CoV-2 Antigen (Rapid) Negative (NEGATIVE) Test 11/30/20 09:41 Glucose (Fingerstick) 174 mg/dL (70-99) Images Images Exam: CT of abdomen and pelvis without contrast INDICATION: Stoma not working TECHNIQUE: Sequential axial images through the abdomen and pelvis obtained without IV contrast. Sagittal and coronal reformatted images were reconstructed from the axial data and reviewed. Exposure: One or more of the following in the visualized dose reduction techniques were utilized for this examination: 1. Automated exposure control 2. Adjustment of the MA and/or KV according to patient size 3. Use of iterative of reconstructive technique Comparisons: None FINDINGS: Heart size is normal. No pericardial effusion. Visualized lung bases are clear. No pleural effusion. Evaluation of solid organs limited to a to noncontrast technique. Liver, spleen, pancreas, and adrenals are unremarkable. Gallbladder surgically absent. No perinephric inflammation or hydronephrosis. There is cystic lesion at the mid left kidney which measures approximately 2.9 cm in diameter. This measures simple fluid attenuation however is incompletely characterized on noncontrast exam. No renal or ureteral calculi are identified. Bladder is decompressed not well evaluated. Prostate is not enlarged. Postoperative changes of near complete colectomy with a small rectal pouch. There is a right lower quadrant ileostomy. There is a parastomal hernia which contains a short segment of small bowel which is causing obstruction. The small bowel proximally is dilated. No free intra-abdominal air or fluid. No obstruction. Additionally there is a left periumbilical fat-containing hernia. Abdominal aorta has a normal course and caliber. No enlarged intra-abdominal lymph nodes are identified. No suspicious osseous lesions or acute fractures. IMPRESSION: 1. Right lower quadrant parastomal hernia containing short segment of small bowel which causes small bowel obstruction. 2. Postoperative changes of near total colectomy with a small rectal pouch. 3. Small fat-containing left periumbilical hernia. Electronically signed by: Tej Chance MD (11/29/2020 7:24 PM) [facility]/Plan Assessment/Plan IMP ESRD HYPERKALEMIA ANEMIA DM II HTN SBO PLAN OR TODAY HD TODAY UF TO TW TOLERATED ALIE WHEN NEEDED WILL FOLLOW DALJIT RODRÍGUEZ MD Nov 30, 2020 10:39
[2020-11-30] MEDS ORDERED: GLYCOPYRROLATE 1 MG/5 ML VIAL. ONE (11:06)
[2020-11-30] MEDS ORDERED: PHENYLEPHRINE 10 MG/ML VIAL. ONE (11:30)
[2020-11-30] MEDS ORDERED: SEVOFLURANE 61 TO 120 MINUTES. IH ONE (12:00)
[2020-11-30] MEDS ORDERED: NEOSTIGMINE METHYLSULFATE 5 MG/5 ML SYRINGE. ONE (12:15)
--- NOTE | 2020-11-30 12:24 | PDOC4 ---
Operative Note Operative Note Date: November 30, 2020 at 1219 Preoperative diagnosis: Small bowel obstruction secondary to incarcerated small bowel parastomal hernia Postoperative diagnosis: Same Procedure: Exploratory laparotomy with lysis of adhesions and reduction of hernia Surgeon: William Specimen: None Dictation: Patient is a 75-year-old male who is mid to the hospital with small bowel obstruction by CT scan showing a loop of small bowel alongside his ileostomy with a transition point at that site. The procedure of exploratory laparotomy with lysis of adhesions possible small bowel resection was explained to the patient detail risk benefits were also discussed including bleeding infection alternatives this procedure also discussed with the patient who seemed to understand and gave both verbal and written consent to have the procedure performed. Patient was taken to the operating room placed in the supine position general anesthesia was initiated once patient was asleep his abdomen was prepped and draped in usual sterile fashion using Betadine scrub and solution and then Ioban with a 4 x 4 over his ileostomy. A midline incision was made above the umbilicus to the xiphoid with 10 blade scalpel is carried down through subcutaneous tissue using electrocautery right hemostasis the fascia was opened with electrocautery finger was placed within the abdomen the bowel was protected the cautery was used to further open the fascia upon entering the abdomen was noted the stomach was quite distended as well as small bowel. There was some adhesions to the anterior abdominal wall these were taken down with electrocautery then the small bowel was run from the ligament of Treitz to the ileostomy was just segment proximal to the ileostomy that was stuck alongside the ileostomy this was reduced there was some dark duskiness to the bowel it was reduced but this fairly quickly lightened up there was good peristalsis the site where the ileostomy transverses the fascia was inspected there is very little space with quite a few adhesions to this area. This did not lend itself well to closing any more space around the ileostomy. NG tube was placed this was palpated within the stomach and there was good decompression of the stomach the bowel again was run from the ileostomy back to the ligament of Treitz all appear to be normal bowel was then returned to the abdominal cavity and the fascia was closed with a running looped 0 PDS the deep subcutaneous layer was closed with a running 3-0 Vicryl and the skin was approximated for subcuticular Monocryl Mastisol Steri-Strips island dressing and a abdominal binder were applied. Kristine ent was awakened and extubated in the operating room taken to recovery in stable condition all sponge instrument needle counts listed as correct estimated blood loss 20 mL ROSELIA HOLDEN MD Nov 30, 2020 12:24
[2020-11-30] MEDS ORDERED: ALBUMIN HUMAN 25% 200 ML IV PRN (13:00)
[2020-11-30] MEDS ORDERED: IV NORMAL SALINE 1000ML BAG 1,000 ML IV PRN ×2 (13:00)
[2020-11-30] MEDS ORDERED: DIALYSIS PATIENT. MC PRN ×2 (13:00)
--- NOTE | 2020-11-30 13:29 | PDOC2 ---
GI CONSULT Date of Service: DATE: 11/30/20 TIME: 12:45 Reason For Consult: SBO, GI bleed history HPI: HPI: 75 y/o male admitted through ER. Seen there for nausea and abdominal pain, also not stooling (through ostomy). CT as below w/ SBO related to parastomal hernia, now s/p exploratory laparotomy with ROGER and reduction of hernia. He was in dialysis when we saw him post-op without complaints. H/o GI bleeding thought to be related to DU. EGD 06/[address] Marcial did not identify any bleeding lesion and gastric biopsy was negative for H. pylori. Follow-up bleeding scan was positive in duodenum (area in question unable to visualize on endoscopy). Then underwent prophylactic IR embolization of left gastroepiploic artery. Shortly thereafter was re-admitted for recurrent hematochezia/melena and worsening anemia. Repeat mesenteric angiography did not identify active bleeding. Per past review of [facility] records, normal colonoscopy prior to colectomy w/ ileostomy [place] [address] Ayala for megacolon and colonic inertia. S/p cholecystectomy for stones. We also saw last year for ascites - liver workup unrevealing (imaging, paracentesis/fluid studies, Hepatitis serologies) - thought related to other issues, also improved when started dialysis. No pancreas or PUD history. H/o A Fib, CAD, ESRD. PMH: PMH: CAD, CHF, A Fib, COPD, pulmonary hypertension, ESRD on HD, anemia, depression CABG, cholecystectomy, colectomy/ileostomy, paracentesis FH: Family History: No pertinent hx (denies GI cancers) Social History: Smoke: Quit ALCOHOL: rare Drugs: None ROS: GEN: Denies fevers, chills, sweats HEENT: Denies blurred vision, sore throat CV: Denies chest pain RESP: Denies shortness of air, cough GI: Per HPI : Denies hematuria, dysuria ENDO: Denies weight changes NEURO: Denies confusion, dizziness MSK: Denies weakness, joint pain/swelling SKIN: Denies jaundice, pruritus Vitals: Vitals: Vital Signs Date Time Temp Pulse Resp B/P (MAP) Pulse Ox O2 Delivery O2 Flow Rate FiO2 11/30/20 09:43 98.1 130 15 122/65 98 Room Air 4 98.1 Labs: Labs: Laboratory Tests Test 11/29/20 18:03 11/29/20 18:17 11/30/20 01:35 11/30/20 07:05 Glucose (Fingerstick) 157 mg/dL (70-99) White Blood Count 6.9 x10^3/uL (4.0-11.0) 5.0 x10^3/uL (4.0-11.0) Red Blood Count 3.52 x10^6/uL (4.30-5.70) 3.47 x10^6/uL (4.30-5.70) Hemoglobin 14.0 g/dL (13.0-17.5) 13.8 g/dL (13.0-17.5) Hematocrit 40.5 % (39.0-53.0) 40.1 % (39.0-53.0) Mean Corpuscular Volume 115 fL (79-100) 116 fL (79-100) Mean Corpuscular Hemoglobin 40 pg (25-35) 40 pg (25-35) Mean Corpuscular Hemoglobin Concent 35 g/dL (31-37) 34 g/dL (31-37) Red Cell Distribution Width 13.4 % (11.5-14.5) 13.7 % (11.5-14.5) Platelet Count 183 x10^3/uL (140-400) 201 x10^3/uL (140-400) Neutrophils (%) (Auto) 84 % (31-73) 79 % (31-73) Lymphocytes (%) (Auto) 4 % (24-48) 5 % (24-48) Monocytes (%) (Auto) 11 % (0-9) 16 % (0-9) Eosinophils (%) (Auto) 1 % (0-3) 1 % (0-3) Basophils (%) (Auto) 0 % (0-3) 1 % (0-3) Neutrophils # (Auto) 5.8 x10^3/uL (1.8-7.7) 3.9 x10^3/uL (1.8-7.7) Lymphocytes # (Auto) 0.3 x10^3/uL (1.0-4.8) 0.2 x10^3/uL (1.0-4.8) Monocytes # (Auto) 0.8 x10^3/uL (0.0-1.1) 0.8 x10^3/uL (0.0-1.1) Eosinophils # (Auto) 0.0 x10^3/uL (0.0-0.7) 0.0 x10^3/uL (0.0-0.7) Basophils # (Auto) 0.0 x10^3/uL (0.0-0.2) 0.0 x10^3/uL (0.0-0.2) Segmented Neutrophils % 72 % (35-66) Band Neutrophils % 13 % (0-9) Lymphocytes % 5 % (24-48) Monocytes % 10 % (0-10) Platelet Estimate Adequate (ADEQUATE) Polychromasia Slight Macrocytosis Marked Sodium Level 132 mmol/L (136-145) 133 mmol/L (136-145) Potassium Level 5.0 mmol/L (3.5-5.1) 5.9 mmol/L (3.5-5.1) Chloride Level 90 mmol/L (98-107) 86 mmol/L (98-107) Carbon Dioxide Level 26 mmol/L (21-32) 25 mmol/L (21-32) Anion Gap 16 (6-14) 22 (6-14) Blood Urea Nitrogen 58 mg/dL (8-26) 74 mg/dL (8-26) Creatinine 8.1 mg/dL (0.7-1.3) 9.7 mg/dL (0.7-1.3) Estimated GFR (Cockcroft-Gault) 6.6 5.3 BUN/Creatinine Ratio 7 (6-20) Glucose Level 148 mg/dL (70-99) 154 mg/dL (70-99) Calcium Level 9.5 mg/dL (8.5-10.1) 9.8 mg/dL (8.5-10.1) Magnesium Level 1.5 mg/dL (1.8-2.4) Total Bilirubin 0.5 mg/dL (0.2-1.0) Aspartate Amino Transf (AST/SGOT) 21 U/L (15-37) Alanine Aminotransferase (ALT/SGPT) 28 U/L (16-63) Alkaline Phosphatase 84 U/L (46-116) Total Protein 8.4 g/dL (6.4-8.2) Albumin 4.3 g/dL (3.4-5.0) Albumin/Globulin Ratio 1.0 (1.0-1.7) Lipase 260 U/L (73-393) SARS-CoV-2 Antigen (Rapid) Negative (NEGATIVE) Test 11/30/20 09:41 Glucose (Fingerstick) 174 mg/dL (70-99) Allergies: Coded Allergies: No Known Drug Allergies (Unverified , 11/29/20) Medications: Current Medications Medications (Trade) Dose Ordered Sig/Ralph Route PRN Reason Start Time Stop Time Status Last Admin Dose Admin Morphine Sulfate (Morphine Sulfate) 4 mg PRN Q2HR PRN IVP PAIN 11/29/20 21:30 11/30/20 21:29 11/30/20 08:56 Cyanocobalamin (Vitamin B-12 Inj) 1,000 mcg 1X ONCE IM 11/30/20 08:30 11/30/20 08:31 DC 11/30/20 08:56 Sodium Chloride 1,000 ml @ 100 mls/hr 1X ONCE IV 11/30/20 08:30 11/30/20 18:29 11/30/20 08:56 Cefazolin Sodium/ Dextrose 50 ml @ 100 mls/hr 1X ONCE IV 11/30/20 09:00 11/30/20 09:29 DC 11/30/20 11:05 Imaging: Imaging: CT A/P w/o contrast 11/29 Heart size is normal. No pericardial effusion. Visualized lung bases are clear. No pleural effusion. Evaluation of solid organs limited to a to noncontrast technique. Liver, spleen, pancreas, and adrenals are unremarkable. Gallbladder surgically absent. No perinephric inflammation or hydronephrosis. There is cystic lesion at the mid left kidney which measures approximately 2.9 cm in diameter. This measures simple fluid attenuation however is incompletely characterized on noncontrast exam. No renal or ureteral calculi are identified. Bladder is decompressed not well evaluated. Prostate is not enlarged. Postoperative changes of near complete colectomy with a small rectal pouch. There is a right lower quadrant ileostomy. There is a parastomal hernia which contains a short segment of small bowel which is causing obstruction. The small bowel proximally is dilated. No free intra-abdominal air or fluid. No obstruction. Additionally there is a left periumbilical fat-containing hernia. Abdominal aorta has a normal course and caliber. No enlarged intra-abdominal lymph nodes are identified. No suspicious osseous lesions or acute fractures. IMPRESSION: 1. Right lower quadrant parastomal hernia containing short segment of small bowel which causes small bowel obstruction. 2. Postoperative changes of near total colectomy with a small rectal pouch. 3. Small fat-containing left periumbilical hernia. PE: GEN: dialyzing HEENT: Atraumatic, PERRL LUNGS: clear anteriorly HEART: mildly tachycardic ABD: quiet, soft, +ostomy, NG with minimal bilious output EXTREMITY: No edema SKIN: No rashes, no jaundice NEURO/PSYCH: A & O 3 A/P: A/P: SBO/parastomal hernia s/p ROGER and reduction of hernia 11/30/20 H/o recurrent UGI bleeding - pantoprazole on summary list S/p colectomy w/ ileostomy for colonic inertia/megacolon S/p cholecystectomy H/o ascites and paracentesis - liver workup unrevealing H/o CAD and A Fib ESRD on HD Rapid COVID negative -- Feeling better post-op. Continue per surgery. ELYSE AGUILAR Nov 30, 2020 13:29
[2020-11-30] MEDS ORDERED: METOCLOPRAMIDE HCL 10 MG/2 ML VIAL. IVP PRN (15:30)
[2020-11-30] MEDS: PANTOPRAZOLE 40 MG TABLET.DR. PO SCH (16:11)
[2020-11-30 19:15] VITALS: BP 106/49
[2020-11-30 23:45] VITALS: BP 114/63
[2020-12-01] VITALS (7 sets, daily range): BP systolic 101–118; BP diastolic 54–66
[2020-12-01] MEDS: MIDODRINE 2.5 MG TABLET PO SCH ×3 (07:00→18:00)
[2020-12-01] MEDS: PANTOPRAZOLE 40 MG TABLET.DR. PO SCH ×2 (07:30→16:30)
[2020-12-01] MEDS: SERTRALINE 50 MG TABLET. PO SCH (09:00)
[2020-12-01] MEDS: TAMSULOSIN 0.4 MG CAP.ER.24H. PO SCH (09:00)
[2020-12-01] MEDS: ALLOPURINOL 100 MG TABLET. PO SCH (09:00)
--- NOTE | 2020-12-01 10:06 | PDOC ---
PROGRESS NOTES Date of Service DATE: 12/01/20 TIME: 10:05 Subjective Subjective feels ok, no complaints; stool recorded, he reports ostomy output Objective Objective Vital Signs Date Time Temp Pulse Resp B/P (MAP) Pulse Ox O2 Delivery O2 Flow Rate FiO2 12/01/20 07:00 97.7 105 18 105/59 (74) 99 Nasal Cannula 2.0 97.7 Intake and Output 12/01/20 07:00 Intake Total 800 ml Output Total 2020 ml Balance -1220 ml Intake Oral 150 ml IV Total 650 ml Output Urine Total 200 ml Gastric Drainage Total 1800 ml Estimated Blood Loss 20 ml # Bowel Movements 1 Physical Exam Abdomen: Soft (small amount in ostomy) Assessment Assessment Problems Medical Problems: (1) ESRD (end stage renal disease) Status: Acute (2) Small bowel obstruction Status: Acute Plan Plan of Care DC NG tube Comment Review of Relevant I have reviewed the following items jen (where applicable) has been applied. Labs Laboratory Tests Test 11/29/20 18:03 11/29/20 18:17 11/30/20 01:35 11/30/20 07:05 Glucose (Fingerstick) 157 mg/dL (70-99) White Blood Count 6.9 x10^3/uL (4.0-11.0) 5.0 x10^3/uL (4.0-11.0) Red Blood Count 3.52 x10^6/uL (4.30-5.70) 3.47 x10^6/uL (4.30-5.70) Hemoglobin 14.0 g/dL (13.0-17.5) 13.8 g/dL (13.0-17.5) Hematocrit 40.5 % (39.0-53.0) 40.1 % (39.0-53.0) Mean Corpuscular Volume 115 fL (79-100) 116 fL (79-100) Mean Corpuscular Hemoglobin 40 pg (25-35) 40 pg (25-35) Mean Corpuscular Hemoglobin Concent 35 g/dL (31-37) 34 g/dL (31-37) Red Cell Distribution Width 13.4 % (11.5-14.5) 13.7 % (11.5-14.5) Platelet Count 183 x10^3/uL (140-400) 201 x10^3/uL (140-400) Neutrophils (%) (Auto) 84 % (31-73) 79 % (31-73) Lymphocytes (%) (Auto) 4 % (24-48) 5 % (24-48) Monocytes (%) (Auto) 11 % (0-9) 16 % (0-9) Eosinophils (%) (Auto) 1 % (0-3) 1 % (0-3) Basophils (%) (Auto) 0 % (0-3) 1 % (0-3) Neutrophils # (Auto) 5.8 x10^3/uL (1.8-7.7) 3.9 x10^3/uL (1.8-7.7) Lymphocytes # (Auto) 0.3 x10^3/uL (1.0-4.8) 0.2 x10^3/uL (1.0-4.8) Monocytes # (Auto) 0.8 x10^3/uL (0.0-1.1) 0.8 x10^3/uL (0.0-1.1) Eosinophils # (Auto) 0.0 x10^3/uL (0.0-0.7) 0.0 x10^3/uL (0.0-0.7) Basophils # (Auto) 0.0 x10^3/uL (0.0-0.2) 0.0 x10^3/uL (0.0-0.2) Segmented Neutrophils % 72 % (35-66) Band Neutrophils % 13 % (0-9) Lymphocytes % 5 % (24-48) Monocytes % 10 % (0-10) Platelet Estimate Adequate (ADEQUATE) Polychromasia Slight Macrocytosis Marked Sodium Level 132 mmol/L (136-145) 133 mmol/L (136-145) Potassium Level 5.0 mmol/L (3.5-5.1) 5.9 mmol/L (3.5-5.1) Chloride Level 90 mmol/L (98-107) 86 mmol/L (98-107) Carbon Dioxide Level 26 mmol/L (21-32) 25 mmol/L (21-32) Anion Gap 16 (6-14) 22 (6-14) Blood Urea Nitrogen 58 mg/dL (8-26) 74 mg/dL (8-26) Creatinine 8.1 mg/dL (0.7-1.3) 9.7 mg/dL (0.7-1.3) Estimated GFR (Cockcroft-Gault) 6.6 5.3 BUN/Creatinine Ratio 7 (6-20) Glucose Level 148 mg/dL (70-99) 154 mg/dL (70-99) Calcium Level 9.5 mg/dL (8.5-10.1) 9.8 mg/dL (8.5-10.1) Magnesium Level 1.5 mg/dL (1.8-2.4) Total Bilirubin 0.5 mg/dL (0.2-1.0) Aspartate Amino Transf (AST/SGOT) 21 U/L (15-37) Alanine Aminotransferase (ALT/SGPT) 28 U/L (16-63) Alkaline Phosphatase 84 U/L (46-116) Total Protein 8.4 g/dL (6.4-8.2) Albumin 4.3 g/dL (3.4-5.0) Albumin/Globulin Ratio 1.0 (1.0-1.7) Lipase 260 U/L (73-393) Coronavirus (COVID-19)(PCR) Not detected (NOT DETECTD) SARS-CoV-2 RNA (ESTELA) Invalid (Negative) SARS-CoV-2 Antigen (Rapid) Negative (NEGATIVE) Test 11/30/20 09:41 11/30/20 12:54 Glucose (Fingerstick) 174 mg/dL (70-99) 155 mg/dL (70-99) Laboratory Tests Test 11/30/20 12:54 Glucose (Fingerstick) 155 mg/dL (70-99) Medications Current Medications Ondansetron HCl (Zofran) 4 mg PRN Q8HRS PRN IVP NAUSEA/VOMITING; Start 11/29/20 at 21:30; Stop 11/30/20 at 21:29; Status DC Morphine Sulfate (Morphine Sulfate) 4 mg PRN Q2HR PRN IVP PAIN Last adm inistered on 11/30/20at 08:56; Start 11/29/20 at 21:30; Stop 11/30/20 at 21:29; Status DC Metoclopramide HCl (Reglan Vial) 10 mg TID PRN PRN IVP NAUSEA; Start 11/29/20 at 21:30; Status Cancel Benzocaine (Hurricaine One) 1 spray STK-MED ONCE .ROUTE ; Start 11/30/20 at 00:12; Stop 11/30/20 at 00:12; Status DC Cyanocobalamin (Vitamin B-12 Inj) 1,000 mcg 1X ONCE IM Last administered on 11/30/20at 08:56; Start 11/30/20 at 08:30; Stop 11/30/20 at 08:31; Status DC Allopurinol (Zyloprim) 100 mg DAILY PO ; Start 11/30/20 at 09:00 Midodrine (Proamatine) 2.5 mg [id number] PO ; Start 11/30/20 at 09:00 Pantoprazole Sodium (Protonix) 40 mg BIDAC PO ; Start 11/30/20 at 16:30 Sertraline HCl (Zoloft) 50 mg DAILY PO ; Start 11/30/20 at 09:00 Tamsulosin HCl (Flomax) 0.4 mg DAILY PO ; Start 11/30/20 at 09:00 Sodium Chloride 1,000 ml @ 100 mls/hr 1X ONCE IV Last administered on 11/30/20at 08:56; Start 11/30/20 at 08:30; Stop 11/30/20 at 18:29; Status DC Cefazolin Sodium/ Dextrose 50 ml @ 100 mls/hr 1X ONCE IV Last administered on 11/30/20at 11:05; Start 11/30/20 at 09:00; Stop 11/30/20 at 09:29; Status DC Propofol (Diprivan) 200 mg STK-MED ONCE IV ; Start 11/30/20 at 10:13; Stop 11/30/20 at 10:13; Status DC Lidocaine HCl (Lidocaine Pf 2% Vial) 5 ml STK-MED ONCE .ROUTE ; Start 11/30/20 at 10:13; Stop 11/30/20 at 10:13; Status DC Dexamethasone Sodium Phosphate (Decadron) 4 mg STK-MED ONCE .ROUTE ; Start 11/30/20 at 10:13; Stop 11/30/20 at 10:13; Status DC Ondansetron HCl (Zofran) 4 mg STK-MED ONCE .ROUTE ; Start 11/30/20 at 10:13; Stop 11/30/20 at 10:13; Status DC Succinylcholine Chloride (Anectine) 200 mg STK-MED ONCE .ROUTE ; Start 11/30/20 at 10:13; Stop 11/30/20 at 10:14; Status DC Rocuronium Galt (Zemuron) 50 mg STK-MED ONCE .ROUTE ; Start 11/30/20 at 10:14; Stop 11/30/20 at 10:14; Status DC Fentanyl Citrate (Fentanyl 2ml Vial) 100 mcg STK-MED ONCE .ROUTE ; Start 11/30/20 at 10:14; Stop 11/30/20 at 10:15; Status DC Fentanyl Citrate (Fentanyl 2ml Vial) 25 mcg PRN Q5MIN PRN IVP MILD PAIN 1-3; Start 11/30/20 at 10:15; Stop 12/01/20 at 04:32; Status DC Fentanyl Citrate (Fentanyl 2ml Vial) 50 mcg PRN Q5MIN PRN IVP MODERATE PAIN 4-6 Last administered on 11/30/20at 13:47; Start 11/30/20 at 10:15; Stop 12/01/20 at 04:32; Status DC Morphine Sulfate (Morphine Sulfate) 1 mg PRN Q10MIN PRN IVP SEVERE PAIN 7-10 Last administered on 12/01/20at 01:29; Start 11/30/20 at 10:15; Stop 12/01/20 at 04:32; Status DC Ringer's Solution 1,000 ml @ 30 mls/hr Q24H IV ; Start 11/30/20 at 10:15; Stop 11/30/20 at 22:14; Status DC Hydromorphone HCl (Dilaudid) 0.5 mg PRN Q10MIN PRN IVP SEVERE PAIN 7-10, 2nd CHOICE; Start 11/30/20 at 10:15; Stop 12/01/20 at 04:32; Status DC Prochlorperazine Edisylate (Compazine) 5 mg PACU PRN PRN IVP NAUSEA, MRX1; Start 11/30/20 at 10:15; Stop 12/01/20 at 04:32; Status DC Glycopyrrolate (Robinul) 1 mg STK-MED ONCE .ROUTE ; Start 11/30/20 at 11:06; Stop 11/30/20 at 11:07; Status DC Phenylephrine HCl ([place]sey-Synephrine Inj) 10 mg STK-MED ONCE .ROUTE ; Start at 11:30; Stop 11/30/20 at 11:30; Status DC Sevoflurane (Ultane) 60 ml STK-MED ONCE IH ; Start 11/30/20 at 12:00; Stop 11/30/20 at 12:01; Status DC Neostigmine Galt (Neostigmine Methylsulfate) 5 mg STK-MED ONCE .ROUTE ; Start 11/30/20 at 12:15; Stop 11/30/20 at 12:15; Status DC Sodium Chloride 1,000 ml @ 1,000 mls/hr Q1H PRN IV hypotension; Start 11/30/20 at 13:00; Stop 11/30/20 at 18:59; Status DC Albumin Human 200 ml @ 200 mls/hr 1X PRN PRN IV Hypotension; Start 11/30/20 at 13:00; Stop 11/30/20 at 18:59; Status DC Sodium Chloride 1,000 ml @ 400 mls/hr Q2H30M PRN IV PATENCY; Start 11/30/20 at 13:00; Stop 12/01/20 at 00:59; Status DC Info (PHARMACY MONITORING -- do not chart) 1 each PRN DAILY PRN MC SEE COMMENTS; Start 11/30/20 at 13:00; Stop 11/30/20 at 13:01; Status DC Info (PHARMACY MONITORING -- do not chart) 1 each PRN DAILY PRN MC SEE COMMENTS ; Start 11/30/20 at 13:00 Fentanyl Citrate (Fentanyl 2ml Vial) 100 mcg STK-MED ONCE .ROUTE ; Start 11/30/20 at 13:43; Stop 11/30/20 at 13:43; Status DC Metoclopramide HCl (Reglan Vial) 10 mg PRN Q6HRS PRN IVP NAUSEA/VOMITING; Start 11/30/20 at 15:30 Active Scripts Active Culturelle (Lactobacillus Rhamnosus Gg) 1 Each Cap.sprink 1 Cap PO BID 30 Days Reported Calcium Acetate 667 Mg Tablet 1 Tab PO TIDWMEALS 30 Days Midodrine Hcl 2.5 Mg Tablet 2.5 Mg PO TID Pantoprazole Sodium (Pantoprazole Sodium) 40 Mg Tablet.dr 40 Mg PO BIDAC Sertraline Hcl 50 Mg Tablet 50 Mg PO DAILY Flomax (Tamsulosin Hcl) 0.4 Mg Cap.er.24h 0.4 Mg PO DAILY Vitamin C (Ascorbic Acid) 500 Mg Capsule.er 1 Cap PO TID 30 Days Allopurinol 100 Mg Tablet 100 Mg PO DAILY Lipitor (Atorvastatin Calcium) 20 Mg Tablet 20 Mg PO HS Vitals/I & O Vital Sign - Last 24 Hours 11/30/20 11/30/20 11/30/20 11/30/20 12:42 12:42 12:58 13:13 Temp 98.5 98.5 Pulse 132 128 122 Resp 25 25 23 B/P (MAP) 126/55 130/58 124/58 Pulse Ox 100 100 100 O2 Delivery Simple Mask Mask Simple Mask Nasal Cannula O2 Flow Rate 8 8 8 4 11/30/20 11/30/20 11/30/20 11/30/20 13:28 13:43 18:00 19:15 Temp 97.8 97.8 Pulse 122 118 118 122 Resp 24 27 18 B/P (MAP) 117/55 128/54 128/54 106/49 (68) Pulse Ox 100 100 99 O2 Delivery Nasal Cannula Nasal Cannula Nasal Cannula O2 Flow Rate 4 4 2.0 11/30/20 11/30/20 12/01/20 12/01/20 20:00 23:45 01:29 01:30 Temp 98.5 98.5 Pulse 109 112 Resp 18 20 18 B/P (MAP) 114/63 (80) 106/55 (72) Pulse Ox 100 100 98 O2 Delivery Nasal Cannula Nasal Cannula Nasal Cannula Nasal Cannula O2 Flow Rate 2.0 2.0 2.0 2.0 12/01/20 12/01/20 03:09 07:00 Temp 97.8 97.7 97.8 97.7 Pulse 102 105 Resp 20 18 B/P (MAP) 102/54 (70) 105/59 (74) Pulse Ox 98 99 O2 Delivery Nasal Cannula Nasal Cannula O2 Flow Rate 2.0 2.0 Intake and Output 11/30/20 11/30/20 12/01/20 15:00 23:00 07:00 Intake Total 650 ml 150 ml Output Total 1820 ml 200 ml Balance -1170 ml -50 ml Justifications for Admission Other Justification COLIN ACEVEDO MD Dec 01, 2020 10:06
[2020-12-01] MEDS ORDERED: DEXTROSE 50% 25 GM / 50ML DISP.SYRIN. IV PRN (10:30)
[2020-12-01] MEDS ORDERED: IV DEXTROSE 5 %-0.45 % NACL 1,000 ML IV ONE (10:30)
[2020-12-01] MEDS: INSULIN LISPRO 300 UNITS/3 ML VIAL. SQ SCH ×2 (11:43→17:00)
--- NOTE | 2020-12-01 13:28 | PDOC ---
[facility] PROGRESS NOTE Date of Service DOS: DATE: 12/01/20 TIME: 13:26 Chief Complaint Chief Complaint acute abdomianl pain, obstruction and SBO, required surgery yesterday Dr. 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 CAD chronic diastolic CHF, A Fib ESRD on HD BMI 32 History of Present Illness History of Present Illness NG tube put out 1100 today, only 400 since midnight to 9 am, will try to clamp, gen surg managing pain better, feels well on PPN Vitals/I&O Vitals/I&O: Vital Signs Date Time Temp Pulse Resp B/P (MAP) Pulse Ox O2 Delivery O2 Flow Rate FiO2 12/01/20 11:00 98.4 94 20 101/66 (78) 98 Nasal Cannula 2.0 98.4 I & O 11/30/20 11/30/20 12/01/20 15:00 23:00 07:00 Intake Total 650 ml 150 ml Output Total 1820 ml 200 ml Balance -1170 ml -50 ml Physical Exam General: Alert, Cooperative, moderate distress Heart: Regular rate, Normal S1 Lungs: Clear Abdomen: Soft (small amount in ostomy) Extremities: No edema, Normal pulses Skin: No breakdown Labs Labs: Laboratory Tests Test 12/01/20 11:38 Glucose (Fingerstick) 128 mg/dL (70-99) Review of Systems Review of Systems: abd pain Assessment and Plan Assessmemt and Plan Problems Medical Problems: (1) ESRD (end stage renal disease) Status: Acute (2) Small bowel obstruction Status: Acute Comment Review of Relevant I have reviewed the following items jen (where applicable) has been applied. Medications: Current Medications Medications (Trade) Dose Ordered Sig/Ralph Route PRN Reason Start Time Stop Time Status Last Admin Dose Admin Dextrose/Sodium Chloride 1,000 ml @ 75 mls/hr 1X ONCE IV 12/01/20 10:30 12/01/20 23:49 12/01/20 11:00 Justifications for Admission Other Justification DALI DAIZ MD Dec 01, 2020 13:28
--- NOTE | 2020-12-01 14:05 | PDOC ---
DATE OF SERVICE DATE: 12/01/20 TIME: 13:56 SUBJECTIVE ROS Stable OBJECTIVE Vital Signs Vital Signs Date Time Temp Pulse Resp B/P (MAP) Pulse Ox O2 Delivery O2 Flow Rate FiO2 12/01/20 11:00 98.4 94 20 101/66 (78) 98 Nasal Cannula 2.0 98.4 I & 0 Intake and Output 12/01/20 07:00 Intake Total 800 ml Output Total 2020 ml Balance -1220 ml Intake Oral 150 ml IV Total 650 ml Output Urine Total 200 ml Gastric Drainage Total 1800 ml Estimated Blood Loss 20 ml # Bowel Movements 1 PHYSICAL EXAM Physical Exam GEN: NAD HEEN: Om moist NECK: supple CVS: RRR RESP: Decreased at bases, Non labored GI: BS + ve, NO Bruit, Non Tender, Distended, Ileostomy + : No CVA tenderness, No Suprapubic Tenderness,No Vale NEURO- Grossly normal DERM- No Rash EXT- changes of CVI + DIAGNOSIS/ASSESSMENT Assessment & Plan ESRD - has been on HD since 05/12 , MW schedule . No indication for HD today SBO- GS following Hx of Anemia- ACute requiring PRBC in the past . Hgb Normal currently S/p colectomy w/ ileostomy Moderate tricuspid regurgitation Severe pulmonary hypertension. Paroxysmal AFIB - remains in AFIB rate controlled. Metoprolol for rate control. On Eliquis History of Ascites in the past requiring paracentesis CAD s/p CABG 03/2017. was Following with [facility] COMMENT/RELEVANT DATA Meds Current Medications Medications (Trade) Dose Ordered Sig/Ralph Start Time Stop Time Status Last Admin Dose Admin Albumin Human 200 ml @ 200 mls/hr 1X PRN PRN 11/30/20 13:00 11/30/20 18:59 DC Allopurinol (Zyloprim) 100 mg DAILY 11/30/20 09:00 Benzocaine (Hurricaine One) 1 spray STK-MED ONCE 11/30/20 00:12 11/30/20 00:12 DC Cefazolin Sodium/ Dextrose 50 ml @ 100 mls/hr 1X ONCE 11/30/20 09:00 11/30/20 09:29 DC 11/30/20 11:05 100 MLS/HR Cyanocobalamin (Vitamin B-12 Inj) 1,000 mcg 1X ONCE 11/30/20 08:30 11/30/20 08:31 DC 11/30/20 08:56 1,000 MCG Dexamethasone Sodium Phosphate (Decadron) 4 mg STK-MED ONCE 11/30/20 10:13 11/30/20 10:13 DC Dextrose (Dextrose 50%-Water Syringe) 12.5 gm PRN Q15MIN PRN 12/01/20 10:30 Dextrose/Sodium Chloride 1,000 ml @ 75 mls/hr 1X ONCE 12/01/20 10:30 12/01/20 23:49 12/01/20 11:00 75 MLS/HR Fentanyl Citrate (Fentanyl 2ml Vial) 100 mcg STK-MED ONCE 11/30/20 13:43 11/30/20 13:43 DC Glycopyrrolate (Robinul) 1 mg STK-MED ONCE 11/30/20 11:06 11/30/20 11:07 DC Hydromorphone HCl (Dilaudid) 0.5 mg PRN Q10MIN PRN 11/30/20 10:12/01/20 04:32 DC Info (PHARMACY MONITORING -- do not chart) 1 each PRN DAILY PRN 11/30/20 13:00 Insulin Human Lispro (HumaLOG) 0-5 UNITS TIDWMEALS 12/01/20 12:00 Lidocaine HCl (Lidocaine Pf 2% Vial) 5 ml STK-MED ONCE 11/30/20 10:13 11/30/20 10:13 DC Metoclopramide HCl (Reglan Vial) 10 mg PRN Q6HRS PRN 11/30/20 15:30 Midodrine (Proamatine) 2.5 mg [id number] 11/30/20 09:00 Morphine Sulfate (Morphine Sulfate) 1 mg PRN Q10MIN PRN 11/30/20 10:15 12/01/20 04:32 DC 12/01/20 01:29 1 MG Neostigmine [place] (Neostigmine Methylsulfate) 5 mg STK-MED ONCE 11/30/20 12:15 11/30/20 12:15 DC Ondansetron HCl (Zofran) 4 mg STK-MED ONCE 11/30/20 10:13 11/30/20 10:13 DC Pantoprazole Sodium (Protonix) 40 mg BIDAC 11/30/20 16:30 Phenylephrine HCl ([place]-Synephrine Inj) 10 mg STK-MED ONCE 11/30/20 11:30 11/30/20 11:30 DC Prochlorperazine Edisylate (Compazine) 5 mg PACU PRN PRN 11/30/20 10:15 12/01/20 04:32 DC Propofol (Diprivan) 200 mg STK-MED ONCE 11/30/20 10:13 11/30/20 10:13 DC Ringer's Solution 1,000 ml @ 30 mls/hr Q24H 11/30/20 10:15 11/30/20 22:14 DC Rocuronium [place] (Zemuron) 50 mg STK-MED ONCE 11/30/20 10:14 11/30/20 10:14 DC Sertraline HCl (Zoloft) 50 mg DAILY 11/30/20 09:00 Sevoflurane (Ultane) 60 ml STK-MED ONCE 11/30/20 12:00 11/30/20 12:01 DC Sodium Chloride 1,000 ml @ 400 mls/hr Q2H30M PRN 11/30/20 13:00 12/01/20 00:59 DC Succinylcholine Chloride (Anectine) 200 mg STK-MED ONCE 11/30/20 10:13 11/30/20 10:14 DC Tamsulosin HCl (Flomax) 0.4 mg DAILY 11/30/20 09:00 Lab Laboratory Tests Test 12/01/20 11:38 Glucose (Fingerstick) 128 mg/dL (70-99) Results All relevant outside records, renal labs, imaging studies, telemetry/EKG's were reviewed. Justicifation of Admission Dx: Justifications for Admission: Justification of Admission Dx: N/A ADE LOPEZ MD Dec 01, 2020 14:05
--- NOTE | 2020-12-01 15:18 | NUR ---
Patient had 500 ml of NG greenish output today before NG clamped.
--- NOTE | 2020-12-01 17:24 | NUR ---
After NG clamped, patient did not complain of nausea or vomiting so NG was removed per Dr. Wilcox ordered. Patient tolerated the procedure well.
[2020-12-02 03:00] VITALS: BP 120/57
[2020-12-02] MEDS: MIDODRINE 2.5 MG TABLET PO SCH ×3 (06:42→16:52)
[2020-12-02] MEDS: PANTOPRAZOLE 40 MG TABLET.DR. PO SCH ×2 (06:42→16:52)
[2020-12-02 07:00] VITALS: BP 97/54
[2020-12-02] MEDS: INSULIN LISPRO 300 UNITS/3 ML VIAL. SQ SCH ×3 (08:00→16:57)
[2020-12-02 08:34] LABS: BASO % 0 % (0-3); EOS # 0.2 x10^3/uL (0.0-0.7); EOS % 3 % (0-3); HEMATOCRIT 36.2 % (39.0-53.0); HEMOGLOBIN 12.1 g/dL (13.0-17.5); LYMPH # 0.4 x10^3/uL (1.0-4.8); LYMPH % 7 % (24-48); MEAN CORPUSCULAR HEMOGLOBIN 40 pg (25-35); MEAN CORPUSCULAR HGB CONC 34 g/dL (31-37); MEAN CORPUSCULAR VOLUME 118 fL (79-100); MONO % 17 % (0-9); NEUT # 4.3 x10^3/uL (1.8-7.7); NEUT % 73 % (31-73); PLATELET COUNT 164 x10^3/uL (140-400); RED BLOOD COUNT 3.07 x10^6/uL (4.30-5.70); RED CELL DISTRIBUTION WIDTH 13.9 % (11.5-14.5)
[2020-12-02 08:42] LABS: ALBUMIN/GLOBULIN RATIO 0.7 (1.0-1.7); CALCIUM 8.9 mg/dL (8.5-10.1); CREATININE 9.7 mg/dL (0.7-1.3); GFR 5.3; POTASSIUM 5.5 mmol/L (3.5-5.1); TOTAL BILIRUBIN 0.6 mg/dL (0.2-1.0); TOTAL PROTEIN 7.5 g/dL (6.4-8.2)
[2020-12-02] MEDS: ALLOPURINOL 100 MG TABLET. PO SCH (09:00)
[2020-12-02] MEDS: SERTRALINE 50 MG TABLET. PO SCH (09:00)
[2020-12-02] MEDS: TAMSULOSIN 0.4 MG CAP.ER.24H. PO SCH (09:00)
--- NOTE | 2020-12-02 09:56 | PDOC ---
PROGRESS NOTES Date of Service DATE: 12/02/20 TIME: 09:56 Subjective Subjective doing well, having ostomy output Objective Objective Vital Signs Date Time Temp Pulse Resp B/P (MAP) Pulse Ox O2 Delivery O2 Flow Rate FiO2 12/02/20 07:00 97.9 94 22 97/54 (68) 100 Nasal Cannula 2.0 97.9 Intake and Output 12/02/20 07:00 Intake Total 255 ml Output Total 1000 ml Balance -745 ml Intake Oral 80 ml Other 175 ml Stool Total 1000 ml Physical Exam Abdomen: Soft (ostomy with output) Assessment Assessment Problems Medical Problems: (1) ESRD (end stage renal disease) Status: Acute (2) Small bowel obstruction Status: Acute Plan Plan of Care clears Comment Review of Relevant I have reviewed the following items jen (where applicable) has been applied. Labs Laboratory Tests Test 11/30/20 12:54 12/01/20 11:38 12/01/20 17:01 12/01/20 20:23 Glucose (Fingerstick) 155 mg/dL (70-99) 128 mg/dL (70-99) 120 mg/dL (70-99) 105 mg/dL (70-99) Test 12/02/20 06:11 12/02/20 07:40 Glucose (Fingerstick) 112 mg/dL (70-99) White Blood Count 6.0 x10^3/uL (4.0-11.0) Red Blood Count 3.07 x10^6/uL (4.30-5.70) Hemoglobin 12.1 g/dL (13.0-17.5) Hematocrit 36.2 % (39.0-53.0) Mean Corpuscular Volume 118 fL (79-100) Mean Corpuscular Hemoglobin 40 pg (25-35) Mean Corpuscular Hemoglobin Concent 34 g/dL (31-37) Red Cell Distribution Width 13.9 % (11.5-14.5) Platelet Count 164 x10^3/uL (140-400) Neutrophils (%) (Auto) 73 % (31-73) Lymphocytes (%) (Auto) 7 % (24-48) Monocytes (%) (Auto) 17 % (0-9) Eosinophils (%) (Auto) 3 % (0-3) Basophils (%) (Auto) 0 % (0-3) Neutrophils # (Auto) 4.3 x10^3/uL (1.8-7.7) Lymphocytes # (Auto) 0.4 x10^3/uL (1.0-4.8) Monocytes # (Auto) 1.0 x10^3/uL (0.0-1.1) Eosinophils # (Auto) 0.2 x10^3/uL (0.0-0.7) Basophils # (Auto) 0.0 x10^3/uL (0.0-0.2) Sodium Level 129 mmol/L (136-145) Potassium Level 5.5 mmol/L (3.5-5.1) Chloride Level 89 mmol/L (98-107) Carbon Dioxide Level 27 mmol/L (21-32) Anion Gap 13 (6-14) Blood Urea Nitrogen 91 mg/dL (8-26) Creatinine 9.7 mg/dL (0.7-1.3) Estimated GFR (Cockcroft-Gault) 5.3 BUN/Creatinine Ratio 9 (6-20) Glucose Level 97 mg/dL (70-99) Calcium Level 8.9 mg/dL (8.5-10.1) Total Bilirubin 0.6 mg/dL (0.2-1.0) Aspartate Amino Transf (AST/SGOT) 23 U/L (15-37) Alanine Aminotransferase (ALT/SGPT) 10 U/L (16-63) Alkaline Phosphatase 63 U/L (46-116) Total Protein 7.5 g/dL (6.4-8.2) Albumin 3.0 g/dL (3.4-5.0) Albumin/Globulin Ratio 0.7 (1.0-1.7) Laboratory Tests Test 12/01/20 11:38 12/01/20 17:01 12/01/20 20:23 12/02/20 06:11 Glucose (Fingerstick) 128 mg/dL (70-99) 120 mg/dL (70-99) 105 mg/dL (70-99) 112 mg/dL (70-99) Test 12/02/20 07:40 White Blood Count 6.0 x10^3/uL (4.0-11.0) Red Blood Count 3.07 x10^6/uL (4.30-5.70) Hemoglobin 12.1 g/dL (13.0-17.5) Hematocrit 36.2 % (39.0-53.0) Mean Corpuscular Volume 118 fL (79-100) Mean Corpuscular Hemoglobin 40 pg (25-35) Mean Corpuscular Hemoglobin Concent 34 g/dL (31-37) Red Cell Distribution Width 13.9 % (11.5-14.5) Platelet Count 164 x10^3/uL (140-400) Neutrophils (%) (Auto) 73 % (31-73) Lymphocytes (%) (Auto) 7 % (24-48) Monocytes (%) (Auto) 17 % (0-9) Eosinophils (%) (Auto) 3 % (0-3) Basophils (%) (Auto) 0 % (0-3) Neutrophils # (Auto) 4.3 x10^3/uL (1.8-7.7) Lymphocytes # (Auto) 0.4 x10^3/uL (1.0-4.8) Monocytes # (Auto) 1.0 x10^3/uL (0.0-1.1) Eosinophils # (Auto) 0.2 x10^3/uL (0.0-0.7) Basophils # (Auto) 0.0 x10^3/uL (0.0-0.2) Sodium Level 129 mmol/L (136-145) Potassium Level 5.5 mmol/L (3.5-5.1) Chloride Level 89 mmol/L (98-107) Carbon Dioxide Level 27 mmol/L (21-32) Anion Gap 13 (6-14) Blood Urea Nitrogen 91 mg/dL (8-26) Creatinine 9.7 mg/dL (0.7-1.3) Estimated GFR (Cockcroft-Gault) 5.3 BUN/Creatinine Ratio 9 (6-20) Glucose Level 97 mg/dL (70-99) Calcium Level 8.9 mg/dL (8.5-10.1) Total Bilirubin 0.6 mg/dL (0.2-1.0) Aspartate Amino Transf (AST/SGOT) 23 U/L (15-37) Alanine Aminotransferase (ALT/SGPT) 10 U/L (16-63) Alkaline Phosphatase 63 U/L (46-116) Total Protein 7.5 g/dL (6.4-8.2) Albumin 3.0 g/dL (3.4-5.0) Albumin/Globulin Ratio 0.7 (1.0-1.7) Medications Current Medications Ondansetron HCl (Zofran) 4 mg PRN Q8HRS PRN IVP NAUSEA/VOMITING; Start 11/29/20 at 21:30; Stop 11/30/20 at 21:29; Status DC Morphine Sulfate (Morphine Sulfate) 4 mg PRN Q2HR PRN IVP PAIN Last administered on 11/30/20at 08:56; Start 11/29/20 at 21:30; Stop 11/30/20 at 21:29; Status DC Metoclopramide HCl (Reglan Vial) 10 mg TID PRN PRN IVP NAUSEA; Start 11/29/20 at 21:30; Status Cancel Benzocaine (Hurricaine One) 1 spray STK-MED ONCE .ROUTE ; Start 11/30/20 at 00 :12; Stop 11/30/20 at 00:12; Status DC Cyanocobalamin (Vitamin B-12 Inj) 1,000 mcg 1X ONCE IM Last administered on 11/30/20at 08:56; Start 11/30/20 at 08:30; Stop 11/30/20 at 08:31; Status DC Allopurinol (Zyloprim) 100 mg DAILY PO ; Start 11/30/20 at 09:00 Midodrine (Proamatine) 2.5 mg [id number] PO ; Start 11/30/20 at 09:00 Pantoprazole Sodium (Protonix) 40 mg BIDAC PO ; Start 11/30/20 at 16:30 Sertraline HCl (Zoloft) 50 mg DAILY PO ; Start 11/30/20 at 09:00 Tamsulosin HCl (Flomax) 0.4 mg DAILY PO ; Start 11/30/20 at 09:00 Sodium Chloride 1,000 ml @ 100 mls/hr 1X ONCE IV Last administered on 11/30/20at 08:56; Start 11/30/20 at 08:30; Stop 11/30/20 at 18:29; Status DC Cefazolin Sodium/ Dextrose 50 ml @ 100 mls/hr 1X ONCE IV Last administered on 11/30/20at 11:05; Start 11/30/20 at 09:00; Stop 11/30/20 at 09:29; Status DC Propofol (Diprivan) 200 mg STK-MED ONCE IV ; Start 11/30/20 at 10:13; Stop 11/30/20 at 10:13; Status DC Lidocaine HCl (Lidocaine Pf 2% Vial) 5 ml STK-MED ONCE .ROUTE ; Start 11/30/20 at 10:13; Stop 11/30/20 at 10:13; Status DC Dexamethasone Sodium Phosphate (Decadron) 4 mg STK-MED ONCE .ROUTE ; Start 11/30/20 at 10:13; Stop 11/30/20 at 10:13; Status DC Ondansetron HCl (Zofran) 4 mg STK-MED ONCE .ROUTE ; Start 11/30/20 at 10:13; Stop 11/30/20 at 10:13; Status DC Succinylcholine Chloride (Anectine) 200 mg STK-MED ONCE .ROUTE ; Start 11/30/20 at 10:13; Stop 11/30/20 at 10:14; Status DC Rocuronium [place] (Zemuron) 50 mg STK-MED ONCE .ROUTE ; Start 11/30/20 at 10: 14; Stop 11/30/20 at 10:14; Status DC Fentanyl Citrate (Fentanyl 2ml Vial) 100 mcg STK-MED ONCE .ROUTE ; Start 11/30/20 at 10:14; Stop 11/30/20 at 10:15; Status DC Fentanyl Citrate (Fentanyl 2ml Vial) 25 mcg PRN Q5MIN PRN IVP MILD PAIN 1-3; Start 11/30/20 at 10:15; Stop 12/01/20 at 04:32; Status DC Fentanyl Citrate (Fentanyl 2ml Vial) 50 mcg PRN Q5MIN PRN IVP MODERATE PAIN 4-6 Last administered on 11/30/20at 13:47; Start 11/30/20 at 10:15; Stop 12/01/20 at 04:32; Status DC Morphine Sulfate (Morphine Sulfate) 1 mg PRN Q10MIN PRN IVP SEVERE PAIN 7-10 Last administered on 12/01/20at 01:29; Start 11/30/20 at 10:15; Stop 12/01/20 at 04:32; Status DC Ringer's Solution 1,000 ml @ 30 mls/hr Q24H IV ; Start 11/30/20 at 10:15; Stop 11/30/20 at 22:14; Status DC Hydromorphone HCl (Dilaudid) 0.5 mg PRN Q10MIN PRN IVP SEVERE PAIN 7-10, 2nd CHOICE; Start 11/30/20 at 10:15; Stop 12/01/20 at 04:32; Status DC Prochlorperazine Edisylate (Compazine) 5 mg PACU PRN PRN IVP NAUSEA, MRX1; Start 11/30/20 at 10:15; Stop 12/01/20 at 04:32; Status DC Glycopyrrolate (Robinul) 1 mg STK-MED ONCE .ROUTE ; Start 11/30/20 at 11:06; Stop 11/30/20 at 11:07; Status DC Phenylephrine HCl ([place]-Synephrine Inj) 10 mg STK-MED ONCE .ROUTE ; Start 11/30/20 at 11:30; Stop 11/30/20 at 11:30; Status DC Sevoflurane (Ultane) 60 ml STK-MED ONCE IH ; Start 11/30/20 at 12:00; Stop 11/30/20 at 12:01; Status DC Neostigmine [place] (Neostigmine Methylsulfate) 5 mg STK-MED ONCE .ROUTE ; Start 11/30/20 at 12:15; Stop 11/30/20 at 12:15; Status DC Sodium Chloride 1,000 ml @ 1,000 mls/hr Q1H PRN IV hypotension; Start 11/30/20 at 13:00; Stop 11/30/20 at 18:59; Status DC Albumin Human 200 ml @ 200 mls/hr 1X PRN PRN IV Hypotension; Start 11/30/20 at 13:00; Stop 11/30/20 at 18:59; Status DC Sodium Chloride 1,000 ml @ 400 mls/hr Q2H30M PRN IV PATENCY; Start 11/30/20 at 13:00; Stop 12/01/20 at 00:59; Status DC Info (PHARMACY MONITORING -- do not chart) 1 each PRN DAILY PRN MC SEE COMMENTS; Start 11/30/20 at 13:00; Stop 11/30/20 at 13:01; Status DC Info (PHARMACY MONITORING -- do not chart) 1 each PRN DAILY PRN MC SEE COMMENTS; Start 11/30/20 at 13:00 Fentanyl Citrate (Fentanyl 2ml Vial) 100 mcg STK-MED ONCE .ROUTE ; Start 11/30/20 at 13:43; Stop 11/30/20 at 13:43; Status DC Metoclopramide HCl (Reglan Vial) 10 mg PRN Q6HRS PRN IVP NAUSEA/VOMITING; Start 11/30/20 at 15:30 Dextrose/Sodium Chloride 1,000 ml @ 75 mls/hr 1X ONCE IV Last administered on 12/01/20at 11:00; Start 12/01/20 at 10:30; Stop 12/01/20 at 23:49; Status DC Insulin Human Lispro (HumaLOG) 0-5 UNITS TIDWMEALS SQ ; Start 12/01/20 at 12:00 Dextrose (Dextrose 50%-Water Syringe) 12.5 gm PRN Q15MIN PRN IV SEE COMMENTS; Start 12/01/20 at 10:30 Active Scripts Active Culturelle (Lactobacillus Rhamnosus Gg) 1 Each Cap.sprink 1 Cap PO BID 30 Days Reported Calcium Acetate 667 Mg Tablet 1 Tab PO TIDWMEALS 30 Days Midodrine Hcl 2.5 Mg Tablet 2.5 Mg PO TID Pantoprazole Sodium (Pantoprazole Sodium) 40 Mg Tablet.dr 40 Mg PO BIDAC Sertraline Hcl 50 Mg Tablet 50 Mg PO DAILY Flomax (Tamsulosin Hcl) 0.4 Mg Cap.er.24h 0.4 Mg PO DAILY Vitamin C (Ascorbic Acid) 500 Mg Capsule.er 1 Cap PO TID 30 Days Allopurinol 100 Mg Tablet 100 Mg PO DAILY Lipitor (Atorvastatin Calcium) 20 Mg Tablet 20 Mg PO HS Vitals/I & O Vital Sign - Last 24 Hours 12/01/20 12/01/20 12/01/20 12/01/20 11:00 15:00 19:00 20:00 Temp 98.4 97.5 97.3 98.4 97.5 97.3 Pulse 94 107 100 Resp 20 19 B/P (MAP) 101/66 (78) 118/60 (79) 116/60 (78) Pulse Ox 98 98 100 O2 Delivery Nasal Cannula Nasal Cannula Nasal Cannula Nasal Cannula O2 Flow Rate 2.0 2.0 2.0 2.0 12/01/20 12/02/20 12/02/20 23:00 03:00 07:00 Temp 97.6 97.9 97.9 97.6 97.9 97.9 Pulse 110 97 94 Resp 18 18 22 B/P (MAP) 110/59 (76) 120/57 (78) 97/54 (68) Pulse Ox 100 99 100 O2 Delivery Nasal Cannula Nasal Cannula Nasal Cannula O2 Flow Rate 2.0 2.0 2.0 Intake and Output 12/01/20 12/01/20 12/02/20 15:00 23:00 07:00 Intake Total 50 ml 30 ml 175 ml Output Total 1000 ml Balance 50 ml 30 ml -825 ml Justifications for Admission Other Justification COLIN ACEVEDO MD Dec 02, 2020 09:56
--- NOTE | 2020-12-02 12:13 | PDOC ---
[employer] PROGRESS NOTE Date of Service DOS: DATE: 12/02/20 TIME: 12:11 Chief Complaint Chief Complaint acute abdomianl pain, obstruction and SBO, required surgery on admit from Dr. 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 CAD chronic diastolic CHF, A Fib ESRD on HD BMI 32 History of Present Illness History of Present Illness pain better sitting up will try clears, has stool output to ostomy, with normal gas per patient no event Vitals/I&O Vitals/I&O: Vital Signs Date Time Temp Pulse Resp B/P (MAP) Pulse Ox O2 Delivery O2 Flow Rate FiO2 12/02/20 07:00 97.9 94 22 97/54 (68) 100 Nasal Cannula 2.0 97.9 I & O 12/01/20 12/01/20 12/02/20 15:00 23:00 07:00 Intake Total 50 ml 30 ml 175 ml Output Total 1000 ml Balance 50 ml 30 ml -825 ml Physical Exam General: Alert, Cooperative, No acute distress Heart: Regular rate, Normal S1 Lungs: Clear Abdomen: Soft (ostomy with output), Other (sounds are less active than normal ) Extremities: No edema, Normal pulses Skin: No breakdown Labs Labs: Laboratory Tests Test 12/01/20 17:01 12/01/20 20:23 12/02/20 06:11 12/02/20 07:40 Glucose (Fingerstick) 120 mg/dL (70-99) 105 mg/dL (70-99) 112 mg/dL (70-99) White Blood Count 6.0 x10^3/uL (4.0-11.0) Red Blood Count 3.07 x10^6/uL (4.30-5.70) Hemoglobin 12.1 g/dL (13.0-17.5) Hematocrit 36.2 % (39.0-53.0) Mean Corpuscular Volume 118 fL (79-100) Mean Corpuscular Hemoglobin 40 pg (25-35) Mean Corpuscular Hemoglobin Concent 34 g/dL (31-37) Red Cell Distribution Width 13.9 % (11.5-14.5) Platelet Count 164 x10^3/uL (140-400) Neutrophils (%) (Auto) 73 % (31-73) Lymphocytes (%) (Auto) 7 % (24-48) Monocytes (%) (Auto) 17 % (0-9) Eosinophils (%) (Auto) 3 % (0-3) Basophils (%) (Auto) 0 % (0-3) Neutrophils # (Auto) 4.3 x10^3/uL (1.8-7.7) Lymphocytes # (Auto) 0.4 x10^3/uL (1.0-4.8) Monocytes # (Auto) 1.0 x10^3/uL (0.0-1.1) Eosinophils # (Auto) 0.2 x10^3/uL (0.0-0.7) Basophils # (Auto) 0.0 x10^3/uL (0.0-0.2) Sodium Level 129 mmol/L (136-145) Potassium Level 5.5 mmol/L (3.5-5.1) Chloride Level 89 mmol/L (98-107) Carbon Dioxide Level 27 mmol/L (21-32) Anion Gap 13 (6-14) Blood Urea Nitrogen 91 mg/dL (8-26) Creatinine 9.7 mg/dL (0.7-1.3) Estimated GFR (Cockcroft-Gault) 5.3 BUN/Creatinine Ratio 9 (6-20) Glucose Level 97 mg/dL (70-99) Calcium Level 8.9 mg/dL (8.5-10.1) Total Bilirubin 0.6 mg/dL (0.2-1.0) Aspartate Amino Transf (AST/SGOT) 23 U/L (15-37) Alanine Aminotransferase (ALT/SGPT) 10 U/L (16-63) Alkaline Phosphatase 63 U/L (46-116) Total Protein 7.5 g/dL (6.4-8.2) Albumin 3.0 g/dL (3.4-5.0) Albumin/Globulin Ratio 0.7 (1.0-1.7) Review of Systems Review of Systems: slept well, normal stool Assessment and Plan Assessmemt and Plan Problems Medical Problems: (1) ESRD (end stage renal disease) Status: Acute (2) Small bowel obstruction Status: Acute Comment Review of Relevant I have reviewed the following items jen (where applicable) has been applied. Justifications for Admission Other Justification DALI DIAZ MD Dec 02, 2020 12:13
--- NOTE | 2020-12-02 12:16 | PDOC ---
DATE OF SERVICE DATE: 12/02/20 TIME: 12:15 SUBJECTIVE ROS Stable , no complaints OBJECTIVE Vital Signs Vital Signs Date Time Temp Pulse Resp B/P (MAP) Pulse Ox O2 Delivery O2 Flow Rate FiO2 12/02/20 07:00 97.9 94 22 97/54 (68) 100 Nasal Cannula 2.0 97.9 I & 0 Intake and Output 12/02/20 07:00 Intake Total 255 ml Output Total 1000 ml Balance -745 ml Intake Oral 80 ml Other 175 ml Stool Total 1000 ml PHYSICAL EXAM Physical Exam GEN: NAD HEEN: Om moist NECK: supple CVS: RRR RESP: Decreased at bases, Non labored GI: BS + ve, NO Bruit, Non Tender, Distended, Ileostomy + : No CVA tenderness, No Suprapubic Tenderness,No Vale NEURO- Grossly normal DERM- No Rash EXT- changes of CVI + DIAGNOSIS/ASSESSMENT Assessment & Plan ESRD - has been on HD since 05/12 , MWF schedule . No RRF No indication for HD today SBO- GS following HypoNatremia- On Zoloft ; recommend restrict free water intake , he doesnt have RRF . Dw patient Hx of Anemia- ACute requiring PRBC in the past . Hgb Normal currently S/p colectomy w/ ileostomy Moderate tricuspid regurgitation Severe pulmonary hypertension. Paroxysmal AFIB - remains in AFIB rate controlled. Metoprolol for rate control. On Eliquis History of Ascites in the past requiring paracentesis CAD s/p CABG 03/2017. was Following with [facility] COMMENT/RELEVANT DATA Meds Current Medications Medications (Trade) Dose Ordered Sig/Ralph Start Time Stop Time Status Last Admin Dose Admin Albumin Human 200 ml @ 200 mls/hr 1X PRN PRN 11/30/20 13:00 11/30/20 18:59 DC Allopurinol (Zyloprim) 100 mg DAILY 11/30/20 09:00 Benzocaine (Hurricaine One) 1 spray STK-MED ONCE 11/30/20 00:12 11/30/20 00:12 DC Cefazolin Sodium/ Dextrose 50 ml @ 100 mls/hr 1X ONCE 11/30/20 09:00 11/30/20 09:29 DC 11/30/20 11:05 100 MLS/HR Cyanocobalamin (Vitamin B-12 Inj) 1,000 mcg 1X ONCE 11/30/20 08:30 11/30/20 08:31 DC 11/30/20 08:56 1,000 MCG Dexamethasone Sodium Phosphate (Decadron) 4 mg STK-MED ONCE 11/30/20 10:13 11/30/20 10:13 DC Dextrose (Dextrose 50%-Water Syringe) 12.5 gm PRN Q15MIN PRN 12/01/20 10:30 Dextrose/Sodium Chloride 1,000 ml @ 75 mls/hr 1X ONCE 12/01/20 10:30 12/01/20 23:49 DC 12/01/20 11:00 75 MLS/HR Fentanyl Citrate (Fentanyl 2ml Vial) 100 mcg STK-MED ONCE 11/30/20 13:43 11/30/20 13:43 DC Glycopyrrolate (Robinul) 1 mg STK-MED ONCE 11/30/20 11:06 11/30/20 11:07 DC Hydromorphone HCl (Dilaudid) 0.5 mg PRN Q10MIN PRN 11/30/20 10:15 12/01/20 04:32 DC Info (PHARMACY MONITORING -- do not chart) 1 each PRN DAILY PRN 11/30/20 13:00 Insulin Human Lispro (HumaLOG) 0-5 UNITS TIDWMEALS 12/01/20 12:00 Lidocaine HCl (Lidocaine Pf 2% Vial) 5 ml STK-MED ONCE 11/30/20 10:13 11/30/20 10:13 DC Metoclopramide HCl (Reglan Vial) 10 mg PRN Q6HRS PRN 11/30/20 15:30 Midodrine (Proamatine) 2.5 mg [id number] 11/30/20 09:00 Morphine Sulfate (Morphine Sulfate) 1 mg PRN Q10MIN PRN 11/30/20 10:15 12/01/20 04:32 DC 12/01/20 01:29 1 MG Neostigmine [place] (Neostigmine Methylsulfate) 5 mg STK-MED ONCE 11/30/20 12:15 11/30/20 12:15 DC Ondansetron HCl (Zofran) 4 mg STK-MED ONCE 11/30/20 10:13 11/30/20 10:13 DC Pantoprazole Sodium (Protonix) 40 mg BIDAC 11/30/20 16:30 Phenylephrine HCl ([place]-Synephrine Inj) 10 mg STK-MED ONCE 11/30/20 11:30 11/30/20 11:30 DC Prochlorperazine Edisylate (Compazine) 5 mg PACU PRN PRN 11/30/20 10:15 12/01/20 04:32 DC Propofol (Diprivan) 200 mg STK-MED ONCE 11/30/20 10:13 11/30/20 10:13 DC Ringer's Solution 1,000 ml @ 30 mls/hr Q24H 11/30/20 10:15 11/30/20 22:14 DC Rocuronium [place] (Zemuron) 50 mg STK-MED ONCE 11/30/20 10:14 11/30/20 10:14 DC Sertraline HCl (Zoloft) 50 mg DAILY 11/30/20 09:00 Sevoflurane (Ultane) 60 ml STK-MED ONCE 11/30/20 12:00 11/30/20 12:01 DC Sodium Chloride 1,000 ml @ 400 mls/hr Q2H30M PRN 11/30/20 13:00 12/01/20 00:59 DC Succinylcholine Chloride (Anectine) 200 mg STK-MED ONCE 11/30/20 10:13 11/30/20 10:14 DC Tamsulosin HCl (Flomax) 0.4 mg DAILY 11/30/20 09:00 Lab Laboratory Tests Test 12/01/20 17:01 12/01/20 20:23 12/02/20 06:11 12/02/20 07:40 Glucose (Fingerstick) 120 mg/dL (70-99) 105 mg/dL (70-99) 112 mg/dL (70-99) White Blood Count 6.0 x10^3/uL (4.0-11.0) Red Blood Count 3.07 x10^6/uL (4.30-5.70) Hemoglobin 12.1 g/dL (13.0-17.5) Hematocrit 36.2 % (39.0-53.0) Mean Corpuscular Volume 118 fL (79-100) Mean Corpuscular Hemoglobin 40 pg (25-35) Mean Corpuscular Hemoglobin Concent 34 g/dL (31-37) Red Cell Distribution Width 13.9 % (11.5-14.5) Platelet Count 164 x10^3/uL (140-400) Neutrophils (%) (Auto) 73 % (31-73) Lymphocytes (%) (Auto) 7 % (24-48) Monocytes (%) (Auto) 17 % (0-9) Eosinophils (%) (Auto) 3 % (0-3) Basophils (%) (Auto) 0 % (0-3) Neutrophils # (Auto) 4.3 x10^3/uL (1.8-7.7) Lymphocytes # (Auto) 0.4 x10^3/uL (1.0-4.8) Monocytes # (Auto) 1.0 x10^3/uL (0.0-1.1) Eosinophils # (Auto) 0.2 x10^3/uL (0.0-0.7) Basophils # (Auto) 0.0 x10^3/uL (0.0-0.2) Sodium Level 129 mmol/L (136-145) Potassium Level 5.5 mmol/L (3.5-5.1) Chloride Level 89 mmol/L (98-107) Carbon Dioxide Level 27 mmol/L (21-32) Anion Gap 13 (6-14) Blood Urea Nitrogen 91 mg/dL (8-26) Creatinine 9.7 mg/dL (0.7-1.3) Estimated GFR (Cockcroft-Gault) 5.3 BUN/Creatinine Ratio 9 (6-20) Glucose Level 97 mg/dL (70-99) Calcium Level 8.9 mg/dL (8.5-10.1) Total Bilirubin 0.6 mg/dL (0.2-1.0) Aspartate Amino Transf (AST/SGOT) 23 U/L (15-37) Alanine Aminotransferase (ALT/SGPT) 10 U/L (16-63) Alkaline Phosphatase 63 U/L (46-116) Total Protein 7.5 g/dL (6.4-8.2) Albumin 3.0 g/dL (3.4-5.0) Albumin/Globulin Ratio 0.7 (1.0-1.7) Results All relevant outside records, renal labs, imaging studies, telemetry/EKG's were reviewed. Justicifation of Admission Dx: Justifications for Admission: Justification of Admission Dx: N/A ADE LOPEZ MD Dec 02, 2020 12:15
[2020-12-02 15:10] VITALS: BP 94/56
--- NOTE | 2020-12-02 18:14 | NUR ---
Emptied patient ileostomy bag twice today with a total volume of 250cc + 350cc = 600cc output with black/greenish color liquid stool.
[2020-12-02 18:44] VITALS: BP 95/54
[2020-12-02 23:40] VITALS: BP 103/58
[2020-12-03 03:25] VITALS: BP 85/58
[2020-12-03 04:24] LABS: BASO % 0 % (0-3); EOS # 0.3 x10^3/uL (0.0-0.7); EOS % 4 % (0-3); HEMATOCRIT 33.6 % (39.0-53.0); HEMOGLOBIN 11.4 g/dL (13.0-17.5); LYMPH # 0.6 x10^3/uL (1.0-4.8); LYMPH % 10 % (24-48); MEAN CORPUSCULAR HEMOGLOBIN 39 pg (25-35); MEAN CORPUSCULAR HGB CONC 34 g/dL (31-37); MEAN CORPUSCULAR VOLUME 115 fL (79-100); MONO # 1.1 x10^3/uL (0.0-1.1); MONO % 17 % (0-9); NEUT # 4.4 x10^3/uL (1.8-7.7); NEUT % 69 % (31-73); PLATELET COUNT 175 x10^3/uL (140-400); RED BLOOD COUNT 2.91 x10^6/uL (4.30-5.70); WHITE BLOOD COUNT 6.3 x10^3/uL (4.0-11.0)
[2020-12-03 04:46] LABS: ALBUMIN 2.9 g/dL (3.4-5.0); ALBUMIN/GLOBULIN RATIO 0.7 (1.0-1.7); CALCIUM 8.4 mg/dL (8.5-10.1); CREATININE 11.3 mg/dL (0.7-1.3); GFR 4.5; POTASSIUM 5.3 mmol/L (3.5-5.1); TOTAL BILIRUBIN 0.5 mg/dL (0.2-1.0)
[2020-12-03] MEDS: PANTOPRAZOLE 40 MG TABLET.DR. PO SCH ×2 (06:18→16:53)
[2020-12-03] MEDS: MIDODRINE 2.5 MG TABLET PO SCH ×3 (06:18→18:19)
[2020-12-03 07:00] VITALS: BP 98/55
[2020-12-03] MEDS: INSULIN LISPRO 300 UNITS/3 ML VIAL. SQ SCH ×3 (08:00→16:53)
--- NOTE | 2020-12-03 08:46 | PDOC ---
JON BYRNE [employer]ER 12/03/20 0846: SURGICAL PROGRESS NOTE DATE: 12/03/20 TIME: 08:45 Subjective pain managed tolerating diet Vital Signs Vital Signs Date Time Temp Pulse Resp B/P (MAP) Pulse Ox O2 Delivery O2 Flow Rate FiO2 12/03/20 06:18 92 85/58 12/03/20 03:25 98.6 18 98 Nasal Cannula 2.0 98.6 I&O Intake and Output 12/03/20 06:59 Intake Total 240 ml Output Total 700 ml Balance -460 ml Intake Oral 240 ml Stool Total 700 ml General: Alert, Oriented X3, Cooperative Abdomen: Soft, Other (ostomy with stool, binder in place) Labs Laboratory Tests Test 12/01/20 11:38 12/01/20 17:01 12/01/20 20:23 12/02/20 06:11 Glucose (Fingerstick) 128 mg/dL (70-99) 120 mg/dL (70-99) 105 mg/dL (70-99) 112 mg/dL (70-99) Test 12/02/20 07:40 12/02/20 12:52 12/02/20 16:55 12/03/20 03:20 White Blood Count 6.0 x10^3/uL (4.0-11.0) 6.3 x10^3/uL (4.0-11.0) Red Blood Count 3.07 x10^6/uL (4.30-5.70) 2.91 x10^6/uL (4.30-5.70) Hemoglobin 12.1 g/dL (13.0-17.5) 11.4 g/dL (13.0-17.5) Hematocrit 36.2 % (39.0-53.0) 33.6 % (39.0-53.0) Mean Corpuscular Volume 118 fL (79-100) 115 fL (79-100) Mean Corpuscular Hemoglobin 40 pg (25-35) 39 pg (25-35) Mean Corpuscular Hemoglobin Concent 34 g/dL (31-37) 34 g/dL (31-37) Red Cell Distribution Width 13.9 % (11.5-14.5) 13.0 % (11.5-14.5) Platelet Count 164 x10^3/uL (140-400) 175 x10^3/uL (140-400) Neutrophils (%) (Auto) 73 % (31-73) 69 % (31-73) Lymphocytes (%) (Auto) 7 % (24-48) 10 % (24-48) Monocytes (%) (Auto) 17 % (0-9) 17 % (0-9) Eosinophils (%) (Auto) 3 % (0-3) 4 % (0-3) Basophils (%) (Auto) 0 % (0-3) 0 % (0-3) Neutrophils # (Auto) 4.3 x10^3/uL (1.8-7.7) 4.4 x10^3/uL (1.8-7.7) Lymphocytes # (Auto) 0.4 x10^3/uL (1.0-4.8) 0.6 x10^3/uL (1.0-4.8) Monocytes # (Auto) 1.0 x10^3/uL (0.0-1.1) 1.1 x10^3/uL (0.0-1.1) Eosinophils # (Auto) 0.2 x10^3/uL (0.0-0.7) 0.3 x10^3/uL (0.0-0.7) Basophils # (Auto) 0.0 x10^3/uL (0.0-0.2) 0.0 x10^3/uL (0.0-0.2) Sodium Level 129 mmol/L (136-145) 129 mmol/L (136-145) Potassium Level 5.5 mmol/L (3.5-5.1) 5.3 mmol/L (3.5-5.1) Chloride Level 89 mmol/L (98-107) 87 mmol/L (98-107) Carbon Dioxide Level 27 mmol/L (21-32) 28 mmol/L (21-32) Anion Gap 13 (6-14) 14 (6-14) Blood Urea Nitrogen 91 mg/dL (8-26) 99 mg/dL (8-26) Creatinine 9.7 mg/dL (0.7-1.3) 11.3 mg/dL (0.7-1.3) Estimated GFR (Cockcroft-Gault) 5.3 4.5 BUN/Creatinine Ratio 9 (6-20) 9 (6-20) Glucose Level 97 mg/dL (70-99) 88 mg/dL (70-99) Calcium Level 8.9 mg/dL (8.5-10.1) 8.4 mg/dL (8.5-10.1) Total Bilirubin 0.6 mg/dL (0.2-1.0) 0.5 mg/dL (0.2-1.0) Aspartate Amino Transf (AST/SGOT) 23 U/L (15-37) 15 U/L (15-37) Alanine Aminotransferase (ALT/SGPT) 10 U/L (16-63) 10 U/L (16-63) Alkaline Phosphatase 63 U/L (46-116) 69 U/L (46-116) Total Protein 7.5 g/dL (6.4-8.2) 7.0 g/dL (6.4-8.2) Albumin 3.0 g/dL (3.4-5.0) 2.9 g/dL (3.4-5.0) Albumin/Globulin Ratio 0.7 (1.0-1.7) 0.7 (1.0-1.7) Glucose (Fingerstick) 71 mg/dL (70-99) 74 mg/dL (70-99) Test 12/03/20 08:31 Glucose (Fingerstick) 88 mg/dL (70-99) Laboratory Tests Test 12/02/20 12:52 12/02/20 16:55 12/03/20 03:20 12/03/20 08:31 Glucose (Fingerstick) 71 mg/dL (70-99) 74 mg/dL (70-99) 88 mg/dL (70-99) White Blood Count 6.3 x10^3/uL (4.0-11.0) Red Blood Count 2.91 x10^6/uL (4.30-5.70) Hemoglobin 11.4 g/dL (13.0-17.5) Hematocrit 33.6 % (39.0-53.0) Mean Corpuscular Volume 115 fL (79-100) Mean Corpuscular Hemoglobin 39 pg (25-35) Mean Corpuscular Hemoglobin Concent 34 g/dL (31-37) Red Cell Distribution Width 13.0 % (11.5-14.5) Platelet Count 175 x10^3/uL (140-400) Neutrophils (%) (Auto) 69 % (31-73) Lymphocytes (%) (Auto) 10 % (24-48) Monocytes (%) (Auto) 17 % (0-9) Eosinophils (%) (Auto) 4 % (0-3) Basophils (%) (Auto) 0 % (0-3) Neutrophils # (Auto) 4.4 x10^3/uL (1.8-7.7) Lymphocytes # (Auto) 0.6 x10^3/uL (1.0-4.8) Monocytes # (Auto) 1.1 x10^3/uL (0.0-1.1) Eosinophils # (Auto) 0.3 x10^3/uL (0.0-0.7) Basophils # (Auto) 0.0 x10^3/uL (0.0-0.2) Sodium Level 129 mmol/L (136-145) Potassium Level 5.3 mmol/L (3.5-5.1) Chloride Level 87 mmol/L (98-107) Carbon Dioxide Level 28 mmol/L (21-32) Anion Gap 14 (6-14) Blood Urea Nitrogen 99 mg/dL (8-26) Creatinine 11.3 mg/dL (0.7-1.3) Estimated GFR (Cockcroft-Gault) 4.5 BUN/Creatinine Ratio 9 (6-20) Glucose Level 88 mg/dL (70-99) Calcium Level 8.4 mg/dL (8.5-10.1) Total Bilirubin 0.5 mg/dL (0.2-1.0) Aspartate Amino Transf (AST/SGOT) 15 U/L (15-37) Alanine Aminotransferase (ALT/SGPT) 10 U/L (16-63) Alkaline Phosphatase 69 U/L (46-116) Total Protein 7.0 g/dL (6.4-8.2) Albumin 2.9 g/dL (3.4-5.0) Albumin/Globulin Ratio 0.7 (1.0-1.7) Problem List Problems Medical Problems: (1) ESRD (end stage renal disease) Status: Acute (2) Small bowel obstruction Status: Acute Assessment/Plan s/p xlap stable surgically can dc when medically ready Justicifation of Admission Dx: Justifications for Admission: Justification of Admission Dx: N/A ROSELIA HOLDEN MD 12/03/20 1458: SURGICAL PROGRESS NOTE Assessment/Plan Agree with Juanita's assessment and plan JON BYRNE APRN Dec 03, 2020 08:46 ROSELIA HOLDEN MD Dec 03, 2020 14:58
[2020-12-03] MEDS ORDERED: DIALYSIS PATIENT. MC PRN ×2 (09:15)
[2020-12-03] MEDS ORDERED: ALBUMIN HUMAN 25% 200 ML IV PRN (09:15)
[2020-12-03] MEDS ORDERED: IV NORMAL SALINE 1000ML BAG 1,000 ML IV PRN ×2 (09:15)
--- NOTE | 2020-12-03 09:58 | PDOC ---
DATE OF SERVICE DATE: 12/03/20 TIME: 09:56 SUBJECTIVE ROS Stable , no complaints during dialysis Tolerating diet OBJECTIVE Vital Signs Vital Signs Date Time Temp Pulse Resp B/P (MAP) Pulse Ox O2 Delivery O2 Flow Rate FiO2 12/03/20 07:00 97.3 92 18 98/55 (69) 98 Nasal Cannula 2.0 97.3 I & 0 Intake and Output 12/03/20 07:00 Intake Total 240 ml Output Total 700 ml Balance -460 ml Intake Oral 240 ml Stool Total 700 ml PHYSICAL EXAM Physical Exam GEN: NAD HEEN: Om moist NECK: supple CVS: RRR RESP: Decreased at bases, Non labored GI: BS + ve, NO Bruit, Non Tender, Distended, Ileostomy + : No CVA tenderness, No Suprapubic Tenderness,No Vale NEURO- Grossly normal DERM- No Rash EXT- changes of CVI + DIAGNOSIS/ASSESSMENT Assessment & Plan ESRD - has been on HD since 05/12 , MWF schedule . No RRF Seen during treatment , tolerating well. Continue as ordered. Conrad Samano SBO- tolerating diet , GS following HypoNatremia- On Zoloft ; recommend restrict free water intake , he doesnt have RRF . Dw patient Hx of Anemia- ACute requiring PRBC in the past . Hgb Normal currently S/p colectomy w/ ileostomy Moderate tricuspid regurgitation Severe pulmonary hypertension. Paroxysmal AFIB - remains in AFIB rate controlled. Metoprolol for rate control. On Eliquis History of Ascites in the past requiring paracentesis CAD s/p CABG 03/2017. was Following with [facility] DC per primary/GS COMMENT/RELEVANT DATA Meds Current Medications Medications (Trade) Dose Ordered Sig/Ralph Start Time Stop Time Status Last Admin Dose Admin Albumin Human 200 ml @ 200 mls/hr 1X PRN PRN 12/03/20 09:15 12/03/20 15:14 Allopurinol (Zyloprim) 100 mg DAILY 11/30/20 09:00 Benzocaine (Hurricaine One) 1 spray STK-MED ONCE 11/30/20 00:12 11/30/20 00:12 DC Cefazolin Sodium/ Dextrose 50 ml @ 100 mls/hr 1X ONCE 11/30/20 09:00 11/30/20 09:29 DC 11/30/20 11:05 100 MLS/HR Cyanocobalamin (Vitamin B-12 Inj) 1,000 mcg 1X ONCE 11/30/20 08:30 11/30/20 08:31 DC 11/30/20 08:56 1,000 MCG Dexamethasone Sodium Phosphate (Decadron) 4 mg STK-MED ONCE 11/30/20 10:13 11/30/20 10:13 DC Dextrose (Dextrose 50%-Water Syringe) 12.5 gm PRN Q15MIN PRN 12/01/20 10:30 Dextrose/Sodium Chloride 1,000 ml @ 75 mls/hr 1X ONCE 12/01/20 10:30 12/01/20 23:49 DC 12/01/20 11:00 75 MLS/HR Fentanyl Citrate (Fentanyl 2ml Vial) 100 mcg STK-MED ONCE 11/30/20 13:43 11/30/20 13:43 DC Glycopyrrolate (Robinul) 1 mg STK-MED ONCE 11/30/20 11:06 11/30/20 11:07 DC Hydromorphone HCl (Dilaudid) 0.5 mg PRN Q10MIN PRN 11/30/20 10:15 12/01/20 04:32 DC Info (PHARMACY MONITORING -- do not chart) 1 each PRN DAILY PRN 12/03/20 09:15 Insulin Human Lispro (HumaLOG) 0-5 UNITS TIDWMEALS 12/01/20 12:00 Lidocaine HCl (Lidocaine Pf 2% Vial) 5 ml STK-MED ONCE 11/30/20 10:13 11/30/20 10:13 DC Metoclopramide HCl (Reglan Vial) 10 mg PRN Q6HRS PRN 11/30/20 15:30 Midodrine (Proamatine) 2.5 mg [id number] 11/30/20 09:00 12/03/20 06:18 2.5 MG Morphine Sulfate (Morphine Sulfate) 1 mg PRN Q10MIN PRN 11/30/20 10:15 12/01/20 04:32 DC 12/01/20 01:[address] (Neostigmine Methylsulfate) 5 mg STK-MED ONCE 11/30/20 12:15 11/30/20 12:15 DC Ondansetron HCl (Zofran) 4 mg STK-MED ONCE 11/30/20 10:13 11/30/20 10:13 DC Pantoprazole Sodium (Protonix) 40 mg BIDAC 11/30/20 16:30 12/03/20 06:18 40 MG Phenylephrine HCl ([place]-Synephrine Inj) 10 mg STK-MED ONCE 11/30/20 11:30 11/30/20 11:30 DC Prochlorperazine Edisylate (Compazine) 5 mg PACU PRN PRN 11/30/20 10:15 12/01/20 04:32 DC Propofol (Diprivan) 200 mg STK-MED ONCE 11/30/20 10:13 11/30/20 10:13 DC Ringer's Solution 1,000 ml @ 30 mls/hr Q24H 11/30/20 10:15 11/30/20 22:[address] (Zemuron) 50 mg STK-MED ONCE 11/30/20 10:14 11/30/20 10:14 DC Sertraline HCl (Zoloft) 50 mg DAILY 11/30/20 09:00 Sevoflurane (Ultane) 60 ml STK-MED ONCE 11/30/20 12:00 11/30/20 12:01 DC Sodium Chloride 1,000 ml @ 400 mls/hr Q2H30M PRN 12/03/20 09:15 12/03/20 21:14 Succinylcholine Chloride (Anectine) 200 mg STK-MED ONCE 11/30/20 10:13 11/30/20 10:14 DC Tamsulosin HCl (Flomax) 0.4 mg DAILY 11/30/20 09:00 Lab Laboratory Tests Test 12/02/20 12:52 12/02/20 16:55 12/03/20 03:20 12/03/20 08:31 Glucose (Fingerstick) 71 mg/dL (70-99) 74 mg/dL (70-99) 88 mg/dL (70-99) White Blood Count 6.3 x10^3/uL (4.0-11.0) Red Blood Count 2.91 x10^6/uL (4.30-5.70) Hemoglobin 11.4 g/dL (13.0-17.5) Hematocrit 33.6 % (39.0-53.0) Mean Corpuscular Volume 115 fL (79-100) Mean Corpuscular Hemoglobin 39 pg (25-35) Mean Corpuscular Hemoglobin Concent 34 g/dL (31-37) Red Cell Distribution Width 13.0 % (11.5-14.5) Platelet Count 175 x10^3/uL (140-400) Neutrophils (%) (Auto) 69 % (31-73) Lymphocytes (%) (Auto) 10 % (24-48) Monocytes (%) (Auto) 17 % (0-9) Eosinophils (%) (Auto) 4 % (0-3) Basophils (%) (Auto) 0 % (0-3) Neutrophils # (Auto) 4.4 x10^3/uL (1.8-7.7) Lymphocytes # (Auto) 0.6 x10^3/uL (1.0-4.8) Monocytes # (Auto) 1.1 x10^3/uL (0.0-1.1) Eosinophils # (Auto) 0.3 x10^3/uL (0.0-0.7) Basophils # (Auto) 0.0 x10^3/uL (0.0-0.2) Sodium Level 129 mmol/L (136-145) Potassium Level 5.3 mmol/L (3.5-5.1) Chloride Level 87 mmol/L (98-107) Carbon Dioxide Level 28 mmol/L (21-32) Anion Gap 14 (6-14) Blood Urea Nitrogen 99 mg/dL (8-26) Creatinine 11.3 mg/dL (0.7-1.3) Estimated GFR (Cockcroft-Gault) 4.5 BUN/Creatinine Ratio 9 (6-20) Glucose Level 88 mg/dL (70-99) Calcium Level 8.4 mg/dL (8.5-10.1) Total Bilirubin 0.5 mg/dL (0.2-1.0) Aspartate Amino Transf (AST/SGOT) 15 U/L (15-37) Alanine Aminotransferase (ALT/SGPT) 10 U/L (16-63) Alkaline Phosphatase 69 U/L (46-116) Total Protein 7.0 g/dL (6.4-8.2) Albumin 2.9 g/dL (3.4-5.0) Albumin/Globulin Ratio 0.7 (1.0-1.7) Results All relevant outside records, renal labs, imaging studies, telemetry/EKG's were reviewed. Justicifation of Admission Dx: Justifications for Admission: Justification of Admission Dx: N/A ADE LOPEZ MD Dec 03, 2020 09:58
--- NOTE | 2020-12-03 11:36 | PDOC ---
Date of Service: DATE: 12/03/20 TIME: 11:31 Subjective: Subjective: Doing okay - ostomy functioning, tolerating diet. Objective: Vital Signs: Vital Signs Date Time Temp Pulse Resp B/P (MAP) Pulse Ox O2 Delivery O2 Flow Rate FiO2 12/03/20 08:00 Room Air 12/03/20 07:00 97.3 92 18 98/55 (69) 98 2.0 97.3 Labs: Laboratory Tests Test 12/02/20 12:52 12/02/20 16:55 12/03/20 03:20 12/03/20 08:31 Glucose (Fingerstick) 71 mg/dL 74 mg/dL 88 mg/dL White Blood Count 6.3 x10^3/uL Red Blood Count 2.91 x10^6/uL Hemoglobin 11.4 g/dL Hematocrit 33.6 % Mean Corpuscular Volume 115 fL Mean Corpuscular Hemoglobin 39 pg Mean Corpuscular Hemoglobin Concent 34 g/dL Red Cell Distribution Width 13.0 % Platelet Count 175 x10^3/uL Neutrophils (%) (Auto) 69 % Lymphocytes (%) (Auto) 10 % Monocytes (%) (Auto) 17 % Eosinophils (%) (Auto) 4 % Basophils (%) (Auto) 0 % Neutrophils # (Auto) 4.4 x10^3/uL Lymphocytes # (Auto) 0.6 x10^3/uL Monocytes # (Auto) 1.1 x10^3/uL Eosinophils # (Auto) 0.3 x10^3/uL Basophils # (Auto) 0.0 x10^3/uL Sodium Level 129 mmol/L Potassium Level 5.3 mmol/L Chloride Level 87 mmol/L Carbon Dioxide Level 28 mmol/L Anion Gap 14 Blood Urea Nitrogen 99 mg/dL Creatinine 11.3 mg/dL Estimated GFR (Cockcroft-Gault) 4.5 BUN/Creatinine Ratio 9 Glucose Level 88 mg/dL Calcium Level 8.4 mg/dL Total Bilirubin 0.5 mg/dL Aspartate Amino Transf (AST/SGOT) 15 U/L Alanine Aminotransferase (ALT/SGPT) 10 U/L Alkaline Phosphatase 69 U/L Total Protein 7.0 g/dL Albumin 2.9 g/dL Albumin/Globulin Ratio 0.7 PE: GEN: dialyzing LUNGS: clear anteriorly HEART: RRR ABD: soft, non-tender NEURO/PSYCH: A & O 3 A/P: SBO/parastomal hernia s/p ROGER and reduction H/o recurrent UGI bleeding - on PPI S/p colectomy w/ ileostomy for colonic inertia/megacolon ESRD on HD COVID negative -- Stable GI-maloney. Continue per surgery. Justicifation of Admission Dx: Justifications for Admission: Justification of Admission Dx: N/A ELYSE AGUILAR Dec 03, 2020 11:36
--- NOTE | 2020-12-03 12:54 | NUR ---
SW following. Discussed with RN, pt from home with , room air, clear liquid diet, COVID-19 negative. PT/OT ordered. Pt had surgery 11/30. RN advised no SW needs at this time. SW will continue to follow.
[2020-12-03] MEDS: ALLOPURINOL 100 MG TABLET. PO SCH (13:58)
[2020-12-03] MEDS: TAMSULOSIN 0.4 MG CAP.ER.24H. PO SCH (13:58)
[2020-12-03] MEDS: SERTRALINE 50 MG TABLET. PO SCH (14:00)
--- NOTE | 2020-12-03 14:53 | PDOC ---
[employer] PROGRESS NOTE Date of Service DOS: DATE: 12/03/20 TIME: 14:52 Chief Complaint Chief Complaint acute abdomianl pain, obstruction and SBO, required surgery on admit from Dr. 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 CAD chronic diastolic CHF, A Fib ESRD on HD BMI 32 History of Present Illness History of Present Illness 12/03/2020 No acute events overnight. Patient tolerating clear liquid diet will defer to surgery for recommending diet further. PT OT evaluation pending. Patient's chart, labs, images were reviewed and discussed with RN pain better sitting up will try clears, has stool output to ostomy, with normal gas per patient no event Vitals/I&O Vitals/I&O: Vital Signs Date Time Temp Pulse Resp B/P (MAP) Pulse Ox O2 Delivery O2 Flow Rate FiO2 12/03/20 13:59 88 101/52 12/03/20 08:00 Room Air 12/03/20 07:00 97.3 18 98 2.0 97.3 I & O 12/02/20 12/02/20 12/03/20 15:00 23:00 07:00 Intake Total 240 ml Output Total 700 ml Balance -460 ml Physical Exam General: Alert, Oriented X3, Cooperative Heart: Regular rate, Normal S1 Lungs: Clear Abdomen: Soft, Other (ostomy with stool, binder in place) Extremities: No edema, Normal pulses Skin: No breakdown Labs Labs: Laboratory Tests Test 12/02/20 16:55 12/03/20 03:20 12/03/20 08:31 Glucose (Fingerstick) 74 mg/dL (70-99) 88 mg/dL (70-99) White Blood Count 6.3 x10^3/uL (4.0-11.0) Red Blood Count 2.91 x10^6/uL (4.30-5.70) Hemoglobin 11.4 g/dL (13.0-17.5) Hematocrit 33.6 % (39.0-53.0) Mean Corpuscular Volume 115 fL (79-100) Mean Corpuscular Hemoglobin 39 pg (25-35) Mean Corpuscular Hemoglobin Concent 34 g/dL (31-37) Red Cell Distribution Width 13.0 % (11.5-14.5) Platelet Count 175 x10^3/uL (140-400) Neutrophils (%) (Auto) 69 % (31-73) Lymphocytes (%) (Auto) 10 % (24-48) Monocytes (%) (Auto) 17 % (0-9) Eosinophils (%) (Auto) 4 % (0-3) Basophils (%) (Auto) 0 % (0-3) Neutrophils # (Auto) 4.4 x10^3/uL (1.8-7.7) Lymphocytes # (Auto) 0.6 x10^3/uL (1.0-4.8) Monocytes # (Auto) 1.1 x10^3/uL (0.0-1.1) Eosinophils # (Auto) 0.3 x10^3/uL (0.0-0.7) Basophils # (Auto) 0.0 x10^3/uL (0.0-0.2) Sodium Level 129 mmol/L (136-145) Potassium Level 5.3 mmol/L (3.5-5.1) Chloride Level 87 mmol/L (98-107) Carbon Dioxide Level 28 mmol/L (21-32) Anion Gap 14 (6-14) Blood Urea Nitrogen 99 mg/dL (8-26) Creatinine 11.3 mg/dL (0.7-1.3) Estimated GFR (Cockcroft-Gault) 4.5 BUN/Creatinine Ratio 9 (6-20) Glucose Level 88 mg/dL (70-99) Calcium Level 8.4 mg/dL (8.5-10.1) Total Bilirubin 0.5 mg/dL (0.2-1.0) Aspartate Amino Transf (AST/SGOT) 15 U/L (15-37) Alanine Aminotransferase (ALT/SGPT) 10 U/L (16-63) Alkaline Phosphatase 69 U/L (46-116) Total Protein 7.0 g/dL (6.4-8.2) Albumin 2.9 g/dL (3.4-5.0) Albumin/Globulin Ratio 0.7 (1.0-1.7) Assessment and Plan Assessmemt and Plan Problems Medical Problems: (1) ESRD (end stage renal disease) Status: Acute (2) Small bowel obstruction Status: Acute Comment Review of Relevant I have reviewed the following items jen (where applicable) has been applied. Justifications for Admission Other Justification KEV PUENTES MD Dec 03, 2020 14:53
[2020-12-03 14:55] VITALS: BP 87/54
[2020-12-03 19:00] VITALS: BP 95/47
[2020-12-03 23:00] VITALS: BP 92/48
[2020-12-04 03:00] VITALS: BP 98/55
[2020-12-04 07:00] VITALS: BP 106/50
[2020-12-04] MEDS: INSULIN LISPRO 300 UNITS/3 ML VIAL. SQ SCH ×2 (08:00→12:00)
--- NOTE | 2020-12-04 08:48 | PDOC ---
SURGICAL PROGRESS NOTE DATE: 12/04/20 TIME: 08:47 Subjective Patient doing quite well unhappy with his clear liquid diet passing stool per ileostomy Vital Signs Vital Signs Date Time Temp Pulse Resp B/P (MAP) Pulse Ox O2 Delivery O2 Flow Rate FiO2 12/04/20 03:00 97.8 91 20 98/55 (69) 99 Nasal Cannula 2.0 97.8 I&O Intake and Output 12/04/20 07:00 Intake Total 180 ml Output Total 1000 ml Balance -820 ml Intake Oral 180 ml Output Urine Total 0 ml Stool Total 1000 ml # Bowel Movements 1 PATIENT HAS A MENDOZA: No General: Alert, Oriented X3, Cooperative, No acute distress Abdomen: Normal bowel sounds, Soft, Other (Mild incisional tenderness wounds clean dry and intact) Labs Laboratory Tests Test 12/02/20 12:52 12/02/20 16:55 12/03/20 03:20 12/03/20 08:31 Glucose (Fingerstick) 71 mg/dL (70-99) 74 mg/dL (70-99) 88 mg/dL (70-99) White Blood Count 6.3 x10^3/uL (4.0-11.0) Red Blood Count 2.91 x10^6/uL (4.30-5.70) Hemoglobin 11.4 g/dL (13.0-17.5) Hematocrit 33.6 % (39.0-53.0) Mean Corpuscular Volume 115 fL (79-100) Mean Corpuscular Hemoglobin 39 pg (25-35) Mean Corpuscular Hemoglobin Concent 34 g/dL (31-37) Red Cell Distribution Width 13.0 % (11.5-14.5) Platelet Count 175 x10^3/uL (140-400) Neutrophils (%) (Auto) 69 % (31-73) Lymphocytes (%) (Auto) 10 % (24-48) Monocytes (%) (Auto) 17 % (0-9) Eosinophils (%) (Auto) 4 % (0-3) Basophils (%) (Auto) 0 % (0-3) Neutrophils # (Auto) 4.4 x10^3/uL (1.8-7.7) Lymphocytes # (Auto) 0.6 x10^3/uL (1.0-4.8) Monocytes # (Auto) 1.1 x10^3/uL (0.0-1.1) Eosinophils # (Auto) 0.3 x10^3/uL (0.0-0.7) Basophils # (Auto) 0.0 x10^3/uL (0.0-0.2) Sodium Level 129 mmol/L (136-145) Potassium Level 5.3 mmol/L (3.5-5.1) Chloride Level 87 mmol/L (98-107) Carbon Dioxide Level 28 mmol/L (21-32) Anion Gap 14 (6-14) Blood Urea Nitrogen 99 mg/dL (8-26) Creatinine 11.3 mg/dL (0.7-1.3) Estimated GFR (Cockcroft-Gault) 4.5 BUN/Creatinine Ratio 9 (6-20) Glucose Level 88 mg/dL (70-99) Calcium Level 8.4 mg/dL (8.5-10.1) Total Bilirubin 0.5 mg/dL (0.2-1.0) Aspartate Amino Transf (AST/SGOT) 15 U/L (15-37) Alanine Aminotransferase (ALT/SGPT) 10 U/L (16-63) Alkaline Phosphatase 69 U/L (46-116) Total Protein 7.0 g/dL (6.4-8.2) Albumin 2.9 g/dL (3.4-5.0) Albumin/Globulin Ratio 0.7 (1.0-1.7) Test 12/03/20 16:48 12/03/20 20:54 Glucose (Fingerstick) 123 mg/dL (70-99) 136 mg/dL (70-99) Laboratory Tests Test 12/03/20 16:48 12/03/20 20:54 Glucose (Fingerstick) 123 mg/dL (70-99) 136 mg/dL (70-99) Problem List Problems Medical Problems: (1) ESRD (end stage renal disease) Status: Acute (2) Small bowel obstruction Status: Acute Assessment/Plan Status post exploratory laparotomy lysis of adhesions for small bowel obstruction Advance diet Cleared for discharge from surgical standpoint Justicifation of Admission Dx: Justifications for Admission: Justification of Admission Dx: N/A ROSELIA HOLDEN MD Dec 04, 2020 08:48
[2020-12-04] MEDS: ALLOPURINOL 100 MG TABLET. PO SCH (09:00)
[2020-12-04] MEDS: TAMSULOSIN 0.4 MG CAP.ER.24H. PO SCH (09:00)
[2020-12-04] MEDS: MIDODRINE 2.5 MG TABLET PO SCH ×2 (09:00→14:34)
[2020-12-04] MEDS: PANTOPRAZOLE 40 MG TABLET.DR. PO SCH (09:00)
[2020-12-04] MEDS: SERTRALINE 50 MG TABLET. PO SCH (09:00)
--- NOTE | 2020-12-04 09:43 | PDOC ---
DATE OF SERVICE DATE: 12/04/20 TIME: 09:42 SUBJECTIVE ROS Stable , no complaints, waiting to go home OBJECTIVE Vital Signs Vital Signs Date Time Temp Pulse Resp B/P (MAP) Pulse Ox O2 Delivery O2 Flow Rate FiO2 12/04/20 09:00 91 98/55 12/04/20 07:00 97.5 17 98 Nasal Cannula 3.0 97.5 I & 0 Intake and Output 12/04/20 07:00 Intake Total 180 ml Output Total 1000 ml Balance -820 ml Intake Oral 180 ml Output Urine Total 0 ml Stool Total 1000 ml # Bowel Movements 1 PHYSICAL EXAM Physical Exam GEN: NAD HEEN: Om moist NECK: supple CVS: RRR RESP: Decreased at bases, Non labored GI: BS + ve, NO Bruit, Non Tender, Distended, Ileostomy + : No CVA tenderness, No Suprapubic Tenderness,No Vale NEURO- Grossly normal DERM- No Rash EXT- changes of CVI + DIAGNOSIS/ASSESSMENT Assessment & Plan ESRD - has been on HD since 05/12 , MWF schedule . No RRF . No indication for dialysis today SBO- tolerating diet HypoNatremia- On Zoloft ; recommend restrict free water intake , he doesnt have RRF . Dw patient Hx of Anemia- ACute requiring PRBC in the past . Hgb Normal currently S/p colectomy w/ ileostomy Moderate tricuspid regurgitation Severe pulmonary hypertension. Paroxysmal AFIB - remains in AFIB rate controlled. Metoprolol for rate control. On Eliquis History of Ascites in the past requiring paracentesis CAD s/p CABG 03/2017. was Following with [facility] DC per primary/GS COMMENT/RELEVANT DATA Meds Current Medications Medications (Trade) Dose Ordered Sig/Ralph Start Time Stop Time Status Last Admin Dose Admin Albumin Human 200 ml @ 200 mls/hr 1X PRN PRN 12/03/20 09:15 12/03/20 15:14 DC Allopurinol (Zyloprim) 100 mg DAILY 11/30/20 09:00 12/04/20 09:00 100 MG Benzocaine (Hurricaine One) 1 spray STK-MED ONCE 11/30/20 00:12 11/30/20 00:12 DC Cefazolin Sodium/ Dextrose 50 ml @ 100 mls/hr 1X ONCE 11/30/20 09:00 11/30/20 09:29 DC 11/30/20 11:05 100 MLS/HR Cyanocobalamin (Vitamin B-12 Inj) 1,000 mcg 1X ONCE 11/30/20 08:30 11/30/20 08:31 DC 11/30/20 08:56 1,000 MCG Dexamethasone Sodium Phosphate (Decadron) 4 mg STK-MED ONCE 11/30/20 10:13 11/30/20 10:13 DC Dextrose (Dextrose 50%-Water Syringe) 12.5 gm PRN Q15MIN PRN 12/01/20 10:30 Dextrose/Sodium Chloride 1,000 ml @ 75 mls/hr 1X ONCE 12/01/20 10:30 12/01/20 23:49 DC 12/01/20 11:00 75 MLS/HR Fentanyl Citrate (Fentanyl 2ml Vial) 100 mcg STK-MED ONCE 11/30/20 13:43 11/30/20 13:43 DC Glycopyrrolate (Robinul) 1 mg STK-MED ONCE 11/30/20 11:06 11/30/20 11:07 DC Hydromorphone HCl (Dilaudid) 0.5 mg PRN Q10MIN PRN 11/30/20 10:15 12/01/20 04:32 DC Info (PHARMACY MONITORING -- do not chart) 1 each PRN DAILY PRN 12/03/20 09:15 Insulin Human Lispro (HumaLOG) 0-5 UNITS TIDWMEALS 12/01/20 12:00 Lidocaine HCl (Lidocaine Pf 2% Vial) 5 ml STK-MED ONCE 11/30/20 10:13 11/30/20 10:13 DC Metoclopramide HCl (Reglan Vial) 10 mg PRN Q6HRS PRN 11/30/20 15:30 Midodrine (Proamatine) 2.5 mg [id number] 11/30/20 09:00 12/04/20 09:00 2.5 MG Morphine Sulfate (Morphine Sulfate) 1 mg PRN Q10MIN PRN 11/30/20 10:15 12/01/20 04:32 DC 12/01/20 01:29 1 MG Neostigmine [place] (Neostigmine Methylsulfate) 5 mg STK-MED ONCE 11/30/20 12:15 11/30/20 12:15 DC Ondansetron HCl (Zofran) 4 mg STK-MED ONCE 11/30/20 10:13 11/30/20 10:13 DC Pantoprazole Sodium (Protonix) 40 mg BIDAC 11/30/20 16:30 12/04/20 09:00 40 MG Phenylephrine HCl ([place]-Synephrine Inj) 10 mg STK-MED ONCE 11/30/20 11:30 11/30/20 11:30 DC Prochlorperazine Edisylate (Compazine) 5 mg PACU PRN PRN 11/30/20 10:15 12/01/20 04:32 DC Propofol (Diprivan) 200 mg STK-MED ONCE 11/30/20 10:13 11/30/20 10:13 DC Ringer's Solution 1,000 ml @ 30 mls/hr Q24H 11/30/20 10:15 11/30/20 22:14 DC Rocuronium [place] (Zemuron) 50 mg STK-MED ONCE 11/30/20 10:14 11/30/20 10:14 DC Sertraline HCl (Zoloft) 50 mg DAILY 11/30/20 09:00 12/04/20 09:00 50 MG Sevoflurane (Ultane) 60 ml STK-MED ONCE 11/30/20 12:00 11/30/20 12:01 DC Sodium Chloride 1,000 ml @ 400 mls/hr Q2H30M PRN 12/03/20 09:15 12/03/20 21:14 DC Succinylcholine Chloride (Anectine) 200 mg STK-MED ONCE 11/30/20 10:13 11/30/20 10:14 DC Tamsulosin HCl (Flomax) 0.4 mg DAILY 11/30/20 09:00 12/04/20 09:00 0.4 MG Lab Laboratory Tests Test 12/03/20 16:48 12/03/20 20:54 12/04/20 08:07 Glucose (Fingerstick) 123 mg/dL (70-99) 136 mg/dL (70-99) 101 mg/dL (70-99) Results All relevant outside records, renal labs, imaging studies, telemetry/EKG's were reviewed. Justicifation of Admission Dx: Justifications for Admission: Justification of Admission Dx: N/A ADE LOPEZ MD Dec 04, 2020 09:43
[2020-12-04 11:00] VITALS: BP 102/49
--- NOTE | 2020-12-04 11:22 | SNU/HH DC ---
DISCHARGE WITH HOME HEALTH DISCHARGE INFORMATION: Discharge Date: Dec 04, 2020 Final Diagnosis: Problems Medical Problems: (1) ESRD (end stage renal disease) Status: Acute (2) Small bowel obstruction Status: Acute Condition on Discharge: Stable CODE STATUS: Code Status: Full HOME HEALTH: Face to Face: I certify this patient is under my care and that I, or a nurse practitioner or physician's compliance assistant working with me, had a face to face encounter that meets the physician face to face encounter requirements with this patient on []. Medical Complications: Falls, Other (Ileostomy) RN For Eval/Treatment: Yes Physical Therapy For: Evalulation/Treatment Occupational Therapy For: Evaluation/Treatment Home Health Aide For: Self-care Pt Meets Homebound Status: Fatigue w/ amb., Frequent falls w/ injury, Limited distance walking, Unable to negotiate home POST DISCHARGE ORDERS: Activity Instructions for Disc: Activity as tolerated Weight Bearing Status after Di: As tolerated DIET AFTER DISCHARGE: Cardiac Wound/Incision Care: Ice to area for comfort, Change dressing, Reinforce dressing PRN CHECKS AFTER DISCHARGE: Checks after discharge: Check blood press - daily, Check blood sugar, ac/hs, Check your Temp as needed FOLLOW-UP: Follow up with: PCP within 2 weeks of discharge Follow Up With: General surgery as scheduled or as needed DC TO SNF LABS: CBC, CMP TREATMENT/EQUIPMENT ORDERS: Adaptive Equipment Issued: None Discharge Respiratory Equipmen: Oxygen, Nebulizer CERTIFICATION STATEMENT: Certification Statement: Certification Statement: Based on the above finding, I certify that this patient is confined to the home and needs intermittent long-term care, physical therapy and/or speech therapy, or continues to need occupational therapy.~ This patient is under my care, and I have initiated the establishment of the plan of care.~ This patient will be followed by myself or a community physician who will periodically review the plan of care. Home Meds Active Scripts Lactobacillus Rhamnosus Gg (CULTURELLE) 1 Each Cap.sprink, 1 CAP PO BID for Diarrhea for 30 Days, #60 CAP Prov:EDMUND CORNELL MD 05/18/19 Reported Medications Calcium Acetate (CALCIUM ACETATE) 667 Mg Tablet, 1 TAB PO TIDWMEALS for supplement for 30 Days, #90 TAB 0 Refills 11/30/20 Midodrine Hcl (MIDODRINE HCL) 2.5 Mg Tablet, 2.5 MG PO TID for low blood pressure, TAB 11/30/20 Pantoprazole Sodium (PANTOPRAZOLE SODIUM ) 40 Mg Tablet.dr, 40 MG PO BIDAC for GERD, TAB 11/30/20 Sertraline Hcl (SERTRALINE HCL) 50 Mg Tablet, 50 MG PO DAILY for ANTI- DEPRESSANT, TAB 0 Refills 06/22/19 Tamsulosin Hcl (FLOMAX) 0.4 Mg Cap.er.24h, 0.4 MG PO DAILY for per pt, TAB 06/22/19 Ascorbic Acid (VITAMIN C) 500 Mg Capsule.er, 1 CAP PO TID for per pt for 30 Days, #90 CAP 0 Refills 06/22/19 Allopurinol (ALLOPURINOL) 100 Mg Tablet, 100 MG PO DAILY for uric acid , TAB 05/10/19 Atorvastatin Calcium (LIPITOR) 20 Mg Tablet, 20 MG PO HS for FOR CHOLESTEROL, #30 TAB 0 Refills 05/10/19 KEV PUENTES MD Dec 04, 2020 11:22
--- NOTE | 2020-12-04 12:05 | PDOC ---
Date of Service: DATE: 12/04/20 TIME: 12:03 Subjective: Subjective: Eating well, ostomy functioning. Anxious to discharge and asking if I could "put a bug in their ear." Objective: Vital Signs: Vital Signs Date Time Temp Pulse Resp B/P (MAP) Pulse Ox O2 Delivery O2 Flow Rate FiO2 12/04/20 09:00 91 98/55 12/04/20 07:00 97.5 17 98 Nasal Cannula 3.0 97.5 Labs: Laboratory Tests Test 12/03/20 16:48 12/03/20 20:54 12/04/20 08:07 12/04/20 11:21 Glucose (Fingerstick) 123 mg/dL (70-99) 136 mg/dL (70-99) 101 mg/dL (70-99) 177 mg/dL (70-99) PE: GEN: NAD - in chair, famiyl present LUNGS: clear, NC 3L HEART: RRR ABD: non-distended NEURO/PSYCH: A & O 3 A/P: SBO/parastomal hernia s/p ROGER and reduction H/o recurrent UGI bleeding S/p colectomy w/ ileostomy -- DC per primary. Justicifation of Admission Dx: Justifications for Admission: Justification of Admission Dx: N/A ELYSE AGUILAR Dec 04, 2020 12:05
--- NOTE | 2020-12-04 12:44 | NUR ---
[facility] following. Discussed with RN, discharge order for home with [facility]. [facility] met with pt and pt's at bedside, they would like the same company used before. [facility] contacted [facility] to determine who pt discharged with from there -[facility] phoned and faxed referral and discharge orders to [facility]. Awaiting confirmation. RN notified. [facility] will continue to follow. Addendum: 12/04/20 at 1342 by CHAPARRITA GARCIA Pt accepted with [facility].
[2020-12-04 14:34] VITALS: BP 102/49
--- NOTE | 2020-12-04 15:09 | NUR ---
Pt discharged home with home health. Discharge instructions discussed. Pt and denied questions. IV removed. Pt assisted to wheelchair and was secured in car with .
== END 2020-12-04 15:12 | disposition home health service (06) | DRG 335 ==
LOC: ER 17:00 → 5 NORTH 22:48 → 4 NORTH 11-30 01:18 → UNDODISIN 11-30 15:30
PROVIDERS: ADMIT Internal Medicine; ATTEND Internal Medicine
PROC: 0DN80ZZ Release Small Intestine, Open Approach (ICD-10-PCS; 2020-11-30)
PROC: 5A1D70Z Performance of Urinary Filtration, Intermittent, Less than 6 Hours Per Day (ICD-10-PCS; 2020-11-30)
PROC: 0DJD0ZZ Inspection of Lower Intestinal Tract, Open Approach (ICD-10-PCS; principal; 2020-11-30 11:45)
PROC: 5A1D70Z Performance of Urinary Filtration, Intermittent, Less than 6 Hours Per Day (ICD-10-PCS; 2020-12-03)
DX: K43.3 Parastomal hernia with obstruction, without gangrene (principal); E43 Unspecified severe protein-calorie malnutrition; N18.6 End stage renal disease; I13.2 Hypertensive heart and chronic kidney disease with heart failure and with stage 5 chronic kidney disease, or end stage renal disease; I50.32 Chronic diastolic (congestive) heart failure; E87.1 Hypo-osmolality and hyponatremia; D64.9 Anemia, unspecified; E11.22 Type 2 diabetes mellitus with diabetic chronic kidney disease; E78.5 Hyperlipidemia, unspecified; E87.5 Hyperkalemia; F32.A Depression, unspecified; I25.10 Atherosclerotic heart disease of native coronary artery without angina pectoris; I27.20 Pulmonary hypertension, unspecified; I48.91 Unspecified atrial fibrillation; J44.9 Chronic obstructive pulmonary disease, unspecified; K42.9 Umbilical hernia without obstruction or gangrene; Z20.822 Contact with and (suspected) exposure to COVID-19; Z68.32 Body mass index [BMI] 32.0-32.9, adult; Z87.11 Personal history of peptic ulcer disease; Z90.49 Acquired absence of other specified parts of digestive tract; Z93.2 Ileostomy status; Z95.1 Presence of aortocoronary bypass graft; Z99.2 Dependence on renal dialysis; E21.3 Hyperparathyroidism, unspecified; K21.9 Gastro-esophageal reflux disease without esophagitis; M19.90 Unspecified osteoarthritis, unspecified site; I48.0 Paroxysmal atrial fibrillation; Z79.01 Long term (current) use of anticoagulants
CPT/HCPCS: 36415; 74176; 80048; 80053; 82962; 83690; 83735; 85007; 85025; 87426; 96361; 96365; 96372; 96375; A4314; A4364; A4452; A4930; J0330; J0690; J1100; J1815; J2270; J2370; J2405; J2704; J2710; J3010; J3420; J3490; J7030; J7042; U0003; U0005; 97116-GP; 97535-GO; 99285-25; G0378